=== PATIENT | female | born 1970 ===

== ENCOUNTER 2021-01-04 09:11 | Outpatient (REF) | payer MEDICAID, SELFPAY | END 2021-01-04 09:12 | disposition home or self-care (01) | LOC: HO.LAB 09:11 | PROVIDERS: Visit Provider Internal Medicine | DX: Z20.822 Contact with and (suspected) exposure to COVID-19 (principal) | CPT/HCPCS: 36415; C9803; U0003; U0005 ==

== ENCOUNTER 2021-09-22 17:00 | Emergency (ER) | payer MEDICAID, SELFPAY ==
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
[2021-09-22 17:18] VITALS: BP 160/82; PULSE 90; O2SAT 99
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
[2021-09-22 17:33] VITALS: BP 143/63; PULSE 80; RESP 17; TEMP 37.2; O2SAT 96; BMI 24.0
[2021-09-22] MEDS: Cyclobenzaprine HCl 10 MG TABLET PO (17:58)
[2021-09-22] MEDS: Acetaminophen 325 MG TABLET 650 MG PO (17:59)
== END 2021-09-22 19:08 | disposition home or self-care (01) ==
PROVIDERS: Emergency Provider Internal Medicine; PCP Family Medicine
DX: S40.012A Contusion of left shoulder, initial encounter (principal); S16.1XXA Strain of muscle, fascia and tendon at neck level, initial encounter; M54.2 Cervicalgia; M48.03 Spinal stenosis, cervicothoracic region; G44.309 Post-traumatic headache, unspecified, not intractable; V43.52XA Car driver injured in collision with other type car in traffic accident, initial encounter; Y93.9 Activity, unspecified; Y92.410 Unspecified street and highway as the place of occurrence of the external cause; Y99.9 Unspecified external cause status; Z79.899 Other long term (current) drug therapy
CPT/HCPCS: 70450; 72125; 99283; 99284

== ENCOUNTER 2022-03-26 16:05 | Outpatient (REF) | payer MEDICAID, SELFPAY ==
--- NOTE | ~2022-03-26 | MM_ITS ---
EXAMINATION: MM SCREENING DIGITAL BREAST TOMOSYNTHESIS, BILATERAL CLINICAL INFORMATION: Screening. Asymptomatic. The lifetime risk of breast cancer based on the Tyrer-Cuzick Model is 11%. COMPARISON: Mammography: 06/07/2014 TECHNIQUE: Digital breast tomosynthesis is performed in both the craniocaudal and mediolateral oblique views along with computer-aided detection (CAD). Synthesized 2D images are generated from the tomosynthesis. Additional right CC view is provided. FINDINGS: There are scattered areas of fibroglandular density (ACR BI-RADS breast composition Category b). Breast tissue composition is of lesser density when compared with 2013. Scattered benign round calcifications are decreased in number. Parenchymal pattern is otherwise similar. No architectural abnormality. There are no significant masses, abnormal calcifications, or other abnormalities. The axilla and skin contours are unremarkable. No significant changes. MM/MM tomosynthesis screening BI IMPRESSION: No mammographic evidence of malignancy. ASSESSMENT: BI-RADS 2: Benign RECOMMENDATION: Routine annual mammography screening. This patient's information was entered into a reminder system with a target due date for their next mammogram.
== END 2022-03-26 16:06 | disposition home or self-care (01) ==
LOC: HO.MAMMO 16:05
PROVIDERS: Visit Provider Family Medicine
DX: Z12.31 Encounter for screening mammogram for malignant neoplasm of breast (principal)
CPT/HCPCS: 77063; 77067

== ENCOUNTER 2022-05-07 15:11 | Emergency (ER) | payer MEDICAID, SELFPAY ==
--- NOTE | ~2022-05-07 | CT_ITS ---
EXAMINATION: CT ABDOMEN AND PELVIS WITHOUT CONTRAST CLINICAL INFORMATION: Left lower quadrant pain and left flank pain. COMPARISON: None TECHNIQUE: Multidetector volumetric imaging was performed from the superior aspect of the liver through the pubic symphysis. Sagittal and coronal reformatted images were obtained on the technologist's workstation. This CT examination was performed using dose optimization techniques as appropriate, variously including the following: *Automated exposure control *Adjustment of mA and/or kV according to patient size (this includes techniques or standardized protocols for targeted exams where dose is matched to indication/reason for exam; i.e. extremities or head) *Use of iterative reconstruction technique DLP: 479 mGy-cm FINDINGS: LUNG BASES: The lung bases are clear. The heart size is normal. LIVER, GALLBLADDER, AND BILIARY TREE: The liver is normal in size, shape, and attenuation. No focal hepatic lesion or biliary ductal dilatation is present. The gallbladder is unremarkable with no evidence of radiopaque gallstones, gallbladder wall thickening, or obvious pericholecystic inflammatory changes. PANCREAS: Unremarkable. SPLEEN: Unremarkable. ADRENAL GLANDS: Unremarkable. KIDNEYS AND URETERS: The kidneys are normal in size, shape, and attenuation. There is a 4 mm radiopaque calculi lower pole and a 7 mm calculi in the left kidney pelvis without caliectasis or hydronephrosis. There are no radiopaque calculi seen in the right kidney. BLADDER: Unremarkable. GASTROINTESTINAL TRACT: There is large amount of stool seen throughout the colon consistent with moderate to severe constipation. The small bowel loops are normal caliber. Appendix has been surgically removed. The stomach is distended with recently ingested food. ABDOMINAL WALL: A small lumbar canal hernia containing fat is noted. LYMPH NODES: Normal. VASCULAR: Unremarkable. PELVIC VISCERA: The uterus has been surgically removed. No free fluid. No abnormal pelvic lymphadenopathy or mass seen. OSSEOUS STRUCTURES: Unremarkable. CT/CT abdomen pelvis wo con IMPRESSION: Moderate to significant constipation without obstruction. Nonobstructive 4 mm radiopaque calculi lower pole and a 7 minute calculi in the pelvis left kidney. Fleischner guidelines were followed.
[2022-05-07 15:32] VITALS: BP 146/82; PULSE 86; RESP 18; TEMP 37; O2SAT 98; BMI 24.3
[2022-05-07] MEDS: 0.9 % Sodium Chloride 1,000 ML 999 ML IV ×2 (16:18→17:22)
[2022-05-07 16:19] LABS: MANUAL DIFF FLAG NO
[2022-05-07 16:21] LABS: Basophils Percent Auto 0.5 % (0-2); Eosinophils Absolute Auto 0.1 X10*3/uL (0.0-0.4); Eosinophils Percent Auto 1.1 % (0-4); Hematocrit 33.5 % (37.0-47.0); Hemoglobin 11.3 g/dl (12.0-16.0); Imm Gran Abs Auto 0.02 X10*3/uL (0.00-0.03); Imm Gran Pct Auto 0.3 % (0.0-0.4); Lymphocytes Absolute Auto 1.7 X10*3/uL (1.2-4.9); Lymphocytes Percent Auto 25.6 % (20-40); Mean Corpuscular HGB Conc 33.7 g/dl (31.0-35.0); Mean Corpuscular Hemoglobin 30.2 pg (27.0-33.0); Mean Corpuscular Volume 89.6 fL (80.0-98.0); Mean Platelet Volume 8.4 fL (9.4-12.3); Monocytes Absolute Auto 0.5 X10*3/uL (0.1-1.2); Monocytes Percent Auto 7.2 % (2-11); Neutrophils Absolute Auto 4.2 x10*3/uL (2.0-8.3); Neutrophils Percent Auto 65.3 % (45-73); Platelet Count 253 X10*3/uL (160-400); Red Blood Count 3.74 X10*6/uL (4.20-5.50); Red Cell Distribution Width 12.9 % (11.0-16.0); White Blood Count 6.5 X10*3/uL (4.8-10.8)
[2022-05-07 16:27] LABS: Prothrombin Time 11.9 SEC (9.9-13.0)
[2022-05-07 16:38] LABS: Alanine Aminotransferase 17 U/L (0-31); Albumin Level 4.6 g/dL (3.5-5.0); Alkaline Phosphatase 122 U/L (39-117); Anion Gap 12 (12-20); Aspartate Amino Transferase 19 U/L (5-31); Bilirubin Direct < 0.2 mg/dL (0.0-0.5); Bilirubin Total 0.4 mg/dL (0.0-1.0); Blood Urea Nitrogen 16 mg/dL (9-16); Calcium 9.6 mg/dL (8.4-10.2); Carbon Dioxide 31 mmol/L (22-29); Chloride 101 mmol/L (96-108); Creatinine Clr Calc Pharmacy 38.7; Estimated Glomerular Filt Rate 38; Glucose Random 99 mg/dL (60-115); Lipase 9 U/L (8-78); Magnesium 2.2 mg/dL (1.6-2.6); Potassium 4.3 mmol/L (3.3-5.1); Sodium 140 mmol/L (135-145); Total Protein 8.2 g/dL (6.5-8.0)
[2022-05-07 16:55] LABS: Appearance Urine CLOUDY; Color Urine YELLOW; Glucose Urine UA NEG (NEG); Leukocyte Esterase Urine 1+ (NEG); Nitrite Urine NEG (NEG); Specific Gravity - Urine 1.025 (1.005-1.025); UACC Culture Trigger YES; Urine Blood 3+ (NEG); Urine Ketones NEG (NEG); Urine Protein 1+ MG/DL (NEG-TRACE)
[2022-05-07 17:08] LABS: Bacteria Urine TRACE /LPF; Mucus Urine TRACE /LPF; RBC Urine 50-75 /HPF (0); Squamous Epithelial Cell Urine TRACE /LPF
--- NOTE | 2022-05-07 17:09 | ED_ITS ---
HPI - Female Genitourinary General Chief complaint: Urogenital-Female Stated complaint: blood in urine/lower back pain Time Seen by Provider: 05/07/22 15:48 Source: patient Mode of arrival: ambulatory History of Present Illness HPI Narrative: 52-year-old female with a past medical history of asthma, depression, GERD, neck pain, renal stones, urinary incontinence, presenting to the ED complaining of Coca-Cola urine, dysuria, left lower quadrant and left flank pain x a few days. Denies fever, chills, nausea, vomiting Related Data Home Medications Medication Instructions Recorded Confirmed albuterol sulfate 90 mcg/actuation 2 puff inhalation Q4-6H PRN 08/22/20 08/22/20 aerosol inhaler (Proventil HFA) Shortness Of Breath fluticasone propionate 220 1 puff inhalation BID 08/22/20 08/22/20 mcg/actuation HFA aerosol inhaler ibuprofen 200 mg tablet (Advil) 200 mg PO Q6H PRN Pain 08/22/20 08/22/20 methadone 10 mg/5 mL oral solution 10 mg PO BID 08/22/20 08/22/20 Previous Rx's Medication Instructions Recorded acetaminophen 325 mg capsule 650 mg PO Q6H PRN pain #20 caps 09/22/21 cyclobenzaprine 10 mg tablet 10 mg PO TID PRN muscle spasm #10 09/22/21 tabs cefuroxime axetil 250 mg tablet 250 mg PO BID 7 days #14 tabs 05/07/22 Allergies Allergy/AdvReac Type Severity Reaction Status Date / Time aspirin [ASPIRIN] Allergy Mild UPSET Verified 05/07/22 15:32 STOMACH, Swelling and hives Review of Systems Review of Systems: Constitutional: No Fever, No Chills, No Night Sweats, No Fatigue, No Malaise ENT/Mouth: No Ear Pain, No Nasal Congestion, No sore throat, No Rhinorrhea, No Swallowing Difficulty Eyes: No Eye Pain, No Swelling, No Redness, No Foreign Body, No Discharge, No Vision Changes Cardiovascular: No Chest Pain, No SOB, No Palpitations Respiratory: No Cough, No Sputum, No Dyspnea Gastrointestinal: No Nausea, No Vomiting, No Diarrhea, No Constipation, + Abdom inal pain Genitourinary: No irregular bleeding, + Dysuria, No Urinary Frequency, + Hematuria, No Urinary Incontinence/retention, No Urgency, + Flank Pain, No Urinary Flow Changes, No Hesitancy Musculoskeletal: No joint pain, No Myalgias, No Joint Swelling Skin: No Skin Lesions, No rash Neuro: No Weakness, No Dizziness, No Headache Yes all other systems are reviewed and are negative [facility] Past Medical History Attestation statement: The following information was validated with the patient. Medical History Asthma Depression GERD (gastroesophageal reflux disease) History of headache Neck pain Renal stones Urinary incontinence Surgical History H/O: hysterectomy Hx of appendectomy Social History Social History Advance Directives: No Advance Directives Information Provided: No Physical Exam Vital Signs: Vital Signs: Last Vital Signs Temp 97.2 F 05/07/22 18:52 Pulse 64 05/07/22 18:52 Resp 16 05/07/22 18:52 BP 157/80 H 05/07/22 18:52 Pulse Ox 97 05/07/22 18:52 O2 Del Method 05/07/22 18:52 BMI result Body Mass Index 24.3 Const: General: cooperative, healthy appearing and no acute distress Orientation/consciousness: patient oriented x3 Limitations: no limitations HEENT: Head: Yes normal to inspection and Yes atraumatic Ears: hearing grossly normal bilaterally General nose exam: Normal external nose present Face and sinus: Yes normal facial exam Eyes: General: appearance normal, both eyes and all related structures EOM: EOMs intact bilaterally Neck: Neck: Yes normal visual inspection and Yes no meningeal signs Resp: Effort & Inspection: normal respiratory effort and no respiratory distress Cardio: Rate: regular rate Heart sounds: S1 normal heart sound present and S2 normal heart sound present GI: Inspection: Yes normal to inspection Palpation (GI): Soft to palpation, Tenderness to palpation present (GI) in the LLQ, no guarding and not rigid : General: Yes CVA tenderness on the left Back/Spine/Pelvis: Back: CVA tenderness Skin: Rashes: no rashes Wounds: no wounds Neuro: General: patient oriented x3, tone normal and no meningeal signs Gait exam (Neuro): Normal gait present Extrem: General: Yes normal to inspection Course Course Course Narrative: 1713--no leukocytosis. H&H stable. BRIGETTE with a creatinine of 1.45. CPK WNL -UA infected and with blood > patient received IM Rocephin in the ED -CT showing moderate constipation with 7 mm calculus in left pelvis with mild hydro as well as 4 mm stone in the left lower pole >> will consult Urology, Dr. Twan Trent recommended treat UTI, hydrate, and outpatient follow-up if pains controlled -2124--repeat BMP after IVF with resolution of BRIGETTE, BUN of 15, creatinine of 1.34. Results discussed with patient including worrisome signs and symptoms and strict return precautions and need a close follow-up with urology MDM - Female Genitourinary MDM Narrative Medical decision making narrative: 52-year-old female with a past medical history of asthma, depression, GERD, neck pain, renal stones, urinary incontinence, presenting to the ED complaining of Coca-Cola urine, dysuria, left lower quadrant and left flank pain x a few days. On exam vital signs stable, NAD, abdomen soft with left lower quadrant and left CVA tenderness, no rebound or guarding. Concern for renal stone vs pyelo vs UTI vs renal failure vs rhabdo Plan: Labs, UA, CT abdomen/pelvis, IVF Differential Diagnosis Differential diagnosis: Likely urinary tract infection and cystitis Medical Records Attestation: I reviewed the patient's medical records. Lab Data Attestation: I reviewed the patient's lab results. Result diagrams: 05/07/22 16:14 05/07/22 18:41 Labs: Lab Results 05/07/22 05/07/22 05/07/22 Range/Units 16:13 16:13 16:14 WBC 6.5 (4.8-10.8) X10*3/uL RBC 3.74 L (4.20-5.50) X10*6/uL Hgb 11.3 L (12.0-16.0) g/dl Hct 33.5 L (37.0-47.0) % MCV 89.6 (80.0-98.0) fL MCH 30.2 (27.0-33.0) pg MCHC 33.7 (31.0-35.0) g/dl RDW 12.9 (11.0-16.0) % Plt Count 253 (160-400) X10*3/uL MPV 8.4 L (9.4-12.3) fL Immature Gran % (Auto) 0.3 (0.0-0.4) % Neut % (Auto) 65.3 (45-73) % Lymph % (Auto) 25.6 (20-40) % [place] % (Auto) 7.2 (2-11) % Eos % (Auto) 1.1 (0-4) % Baso % (Auto) 0.5 (0-2) % Lymph # (Auto) 1.7 (1.2-4.9) X10*3/uL [place] # (Auto) 0.5 (0.1-1.2) X10*3/uL Eos # (Auto) 0.1 (0.0-0.4) X10*3/uL Baso # (Auto) 0.0 (0.0-0.2) X10*3/uL Abs Immat Gran (auto) 0.02 (0.00-0.03) X10*3/uL Absolute Neuts (auto) 4.2 (2.0-8.3) x10*3/uL Absolute Nucleated RBC 0.000 (0.0-0.012) X10*3/uL Nucleated RBC % (auto) 0.0 (0.0-0.2) /100WBC PT 11.9 (9.9-13.0) SEC INR 1.0 (0.9-1.1) Sodium 140 (135-145) mmol/L Potassium 4.3 (3.3-5.1) mmol/L Chloride 101 (96-108) mmol/L Carbon Dioxide 31 H (22-29) mmol/L Anion Gap 12 (12-20) BUN 16 (9-16) mg/dL Creatinine 1.45 H (0.5-1.4) mg/dL Estim Creat Clear Calc 38.7 Estimated GFR 38 Random Glucose 99 (60-115) mg/dL Calcium 9.6 (8.4-10.2) mg/dL Magnesium 2.2 (1.6-2.6) mg/dL Total Bilirubin 0.4 (0.0-1.0) mg/dL Direct Bilirubin < 0.2 (0.0-0.5) mg/dL AST 19 (5-31) U/L ALT 17 (0-31) U/L Alkaline Phosphatase 122 H (39-117) U/L Total Creatine Kinase 80 (26-140) U/L Total Protein 8.2 H (6.5-8.0) g/dL Albumin 4.6 (3.5-5.0) g/dL Lipase 9 (8-78) U/L Urine Color Urine Appearance Urine pH (5.0-8.0) Ur Specific [place] (1.005-1.025) Urine Protein (NEG-TRACE) MG/DL Urine Glucose (UA) (NEG) MG/DL Urine Ketones (NEG) MG/DL Urine Blood (NEG) Urine Nitrite (NEG) Ur Leukocyte Esterase (NEG) Urine RBC (0) /HPF Urine WBC (0-4) /HPF Ur Squamous Epith Cells /LPF Urine Bacteria /LPF Granular Casts /LPF Urine Mucus /LPF 05/07/22 05/07/22 Range/Units 16:44 18:41 WBC (4.8-10.8) X10*3/uL RBC (4.20-5.50) X10*6/uL Hgb (12.0-16.0) g/dl Hct (37.0-47.0) % MCV (80.0-98.0) fL MCH (27.0-33.0) pg MCHC (31.0-35.0) g/dl RDW (11.0-16.0) % Plt Count (160-400) X10*3/uL MPV (9.4-12.3) fL Immature Gran % (Auto) (0.0-0.4) % Neut % (Auto) (45-73) % Lymph % (Auto) (20-40) % [place] % (Auto) (2-11) % Eos % (Auto) (0-4) % Baso % (Auto) (0-2) % Lymph # (Auto) (1.2-4.9) X10*3/uL [place] # (Auto) (0.1-1.2) X10*3/uL Eos # (Auto) (0.0-0.4) X10*3/uL Baso # (Auto) (0.0-0.2) X10*3/uL Abs Immat Gran (auto) (0.00-0.03) X10*3/uL Absolute Neuts (auto) (2.0-8.3) x10*3/uL Absolute Nucleated RBC (0.0-0.012) X10*3/uL Nucleated RBC % (auto) (0.0-0.2) /100WBC PT (9.9-13.0) SEC INR (0.9-1.1) Sodium 140 (135-145) mmol/L Potassium 4.4 (3.3-5.1) mmol/L Chloride 107 (96-108) mmol/L Carbon Dioxide 27 (22-29) mmol/L Anion Gap 10 L (12-20) BUN 15 (9-16) mg/dL Creatinine 1.34 (0.5-1.4) mg/dL Estim Creat Clear Calc 41.9 Estimated GFR 41 Random Glucose 111 (60-115) mg/dL Calcium 8.1 L D (8.4-10.2) mg/dL Magnesium (1.6-2.6) mg/dL Total Bilirubin (0.0-1.0) mg/dL Direct Bilirubin (0.0-0.5) mg/dL AST (5-31) U/L ALT (0-31) U/L Alkaline Phosphatase (39-117) U/L Total Creatine Kinase (26-140) U/L Total Protein (6.5-8.0) g/dL Albumin (3.5-5.0) g/dL Lipase (8-78) U/L Urine Color YELLOW Urine Appearance CLOUDY Urine pH 6.0 (5.0-8.0) Ur Specific [place] 1.025 (1.005-1.025) Urine Protein 1+ H (NEG-TRACE) MG/DL Urine Glucose (UA) NEG (NEG) MG/DL Urine Ketones NEG (NEG) MG/DL Urine Blood 3+ H (NEG) Urine Nitrite NEG (NEG) Ur Leukocyte Esterase 1+ H (NEG) Urine RBC 50-75 H (0) /HPF Urine WBC 10-14 H (0-4) /HPF Ur Squamous Epith Cells TRACE /LPF Urine Bacteria TRACE /LPF Granular Casts 1-4 /LPF Urine Mucus TRACE /LPF Critical Care Time Critical Care Time Critical Care Time: Yes Total Critical Care Time: 35 Attestation: I have personally provided critical care time exclusive of time spent on separately billable procedures. Time includes review of lab data, radiology results, discussion with consultants, and monitoring for potential decompensation. Intervention performed as documented. Discharge Plan Discharge Clinical Impression: Renal calculi, UTI (urinary tract infection), BRIGETTE (acute kidney injury) Patient Disposition: Home, Self-Care Instructions: Kidney Stones (ED), Urinary Tract Infection in Women (ED) Additional Instructions: Your blood work showed initial dehydration/bump in her kidney function. You do have left-sided stones in her kidney. You also have a urinary tract infection. Ceftin is an antibiotic please take as prescribed. Need to have close follow- up with Urology, call tomorrow to make an appointment. Make sure staying hydrated at home. If symptoms persist or worsen, your unable to urinate, de velops fever, abdominal pain, nausea or vomiting please return to the ED immediately Prescriptions: New cefuroxime axetil 250 mg tablet 250 mg PO BID 7 Days Qty: 14 0RF No Action methadone 10 mg/5 mL Solution 10 mg PO BID ibuprofen [Advil] 200 mg Tablet 200 mg PO Q6H PRN (Reason: Pain) Flovent 220 mcg/actuation Hfa Aerosol Inhaler 1 puff INHALATION BID albuterol sulfate [Proventil HFA] 90 mcg/actuation Hfa Aerosol Inhaler 2 puff INHALATION Q4-6H PRN (Reason: Shortness Of Breath) acetaminophen 325 mg capsule 650 mg PO Q6H PRN (Reason: pain) Qty: 20 0RF cyclobenzaprine 10 mg tablet 10 mg PO TID PRN (Reason: muscle spasm) Qty: 10 0RF Referrals: Deonte Trent MD [Physician] - 3 days
[2022-05-07] MEDS: cefTRIAXone sodium 1 GM in 0.9 % Sodium Chloride 50 ML IV (17:38)
[2022-05-07 18:52] VITALS: BP 157/80; PULSE 64; RESP 16; TEMP 36.2; O2SAT 97
[2022-05-07 19:12] LABS: Anion Gap 10 (12-20); Blood Urea Nitrogen 15 mg/dL (9-16); Calcium 8.1 mg/dL (8.4-10.2); Carbon Dioxide 27 mmol/L (22-29); Chloride 107 mmol/L (96-108); Creatinine Clr Calc Pharmacy 41.9; Estimated Glomerular Filt Rate 41; Glucose Random 111 mg/dL (60-115); Potassium 4.4 mmol/L (3.3-5.1); Sodium 140 mmol/L (135-145)
== END 2022-05-07 19:37 | disposition home or self-care (01) ==
PROVIDERS: Physician Assistant; Emergency Provider Emergency Medicine; PCP Family Medicine
DX: N20.0 Calculus of kidney (principal); N39.0 Urinary tract infection, site not specified; N17.9 Acute kidney failure, unspecified
CPT/HCPCS: 36415; 74176; 80048; 80076; 81001; 82550; 83690; 83735; 85025; 85610; 87086; 96361; 96365; 99284; J0696

== ENCOUNTER 2023-06-09 11:34 | Outpatient (REF) | payer MEDICAID, SELFPAY ==
--- NOTE | ~2023-06-09 | XR_ITS ---
EXAMINATION: XR CERVICAL SPINE CLINICAL INFORMATION: Pain COMPARISON: None available. TECHNIQUE: 6 views FINDINGS: Reversal of normal cervical lordosis. No prevertebral soft tissue swelling. Moderate degenerative disc space narrowing C4-C5. Generalized endplate spurring. No subluxation. Narrowing of the apophyseal joints throughout. Lung apices clear. XR/XR cervical spine 3V IMPRESSION: Degenerative disc disease most notable at C4-C5 as above.
== END 2023-06-09 11:35 | disposition home or self-care (01) ==
LOC: HO.HHCX 11:34
PROVIDERS: Visit Provider Family Medicine
DX: M54.2 Cervicalgia (principal)
CPT/HCPCS: 72040

== ENCOUNTER 2023-06-12 10:22 | Outpatient (REF) | payer MEDICAID, SELFPAY ==
[2023-06-12 14:42] LABS: Alanine Aminotransferase 25 U/L (0-31); Albumin Level 4.2 g/dL (3.5-5.0); Alkaline Phosphatase 123 U/L (39-117); Aspartate Amino Transferase 32 U/L (5-31); Bilirubin Direct < 0.2 mg/dL (0.0-0.5); Bilirubin Total 0.2 mg/dL (0.0-1.0); Cholesterol 300 mg/dL; HDL Cholesterol 32 mg/dL; Total Protein 8.3 g/dL (6.5-8.0); Triglycerides 592 mg/dL
== END 2023-06-12 10:23 | disposition home or self-care (01) ==
LOC: HO.HHCL 10:22
PROVIDERS: Visit Provider Family Medicine
DX: E78.5 Hyperlipidemia, unspecified (principal)
CPT/HCPCS: 36415; 80061; 80076

== ENCOUNTER 2023-12-06 10:01 | Emergency (ER) | payer MEDICAID, SELFPAY ==
--- NOTE | ~2023-12-06 | CT_ITS ---
EXAMINATION: CT ABDOMEN AND PELVIS WITHOUT CONTRAST CLINICAL INFORMATION: 53-year-old female with abdominal pain and tenderness COMPARISON: 06/06/2022 TECHNIQUE: Multidetector volumetric imaging was performed from the superior aspect of the liver through the pubic symphysis. Sagittal and coronal reformatted images were obtained on the technologist's workstation. This CT examination was performed using dose optimization techniques as appropriate, variously including the following: *Automated exposure control *Adjustment of mA and/or kV according to patient size (this includes techniques or standardized protocols for targeted exams where dose is matched to indication/reason for exam; i.e. extremities or head) *Use of iterative reconstruction technique DLP: 426 mGy-cm FINDINGS: LUNG BASES: The visualized lung bases are unremarkable. LIVER, GALLBLADDER, AND BILIARY TREE: The liver is normal in size, shape, and attenuation. No focal hepatic lesion or biliary ductal dilatation is present. The gallbladder is unremarkable with no evidence of radiopaque gallstones, gallbladder wall thickening, or obvious pericholecystic inflammatory changes. PANCREAS: Unremarkable. SPLEEN: Unremarkable. ADRENAL GLANDS: Unremarkable. KIDNEYS AND URETERS: There is small nonobstructing calculus in the lower pole of left kidney. There is irregularity of the cortex of left kidney. Seen previously stone in the left UVJ has been resolved. BLADDER: Unremarkable . Loops of small bowel are unremarkable. GASTROINTESTINAL TRACT: There is significant constipation with overdistention of colonic loops the ascending colon measured 7 x 10 cm in diameter with air-fluid level appendix is surgically absent. There is no evidence of colitis. There is redundancy of transverse colon. There is no ascites ABDOMINAL WALL: No significant hernia is appreciated. LYMPH NODES: Normal. VASCULAR: Unremarkable. PELVIC VISCERA: Uterus is surgically absent OSSEOUS STRUCTURES: Unremarkable CT/CT abdomen pelvis wo IV con IMPRESSION: 1. Severe constipation with overdistention of colonic loops. No evidence of colitis. Status post appendectomy and hysterectomy. 2. Nonobstructing calculus in the lower pole of left kidney. Fleischner guidelines were followed.
[2023-12-06 10:08] VITALS: BP 142/81; BP 148/90; PULSE 79; PULSE 80; RESP 20; TEMP 36.6; O2SAT 100; O2SAT 99; BMI 28.3
--- NOTE | 2023-12-06 10:25 | ED.GENADULT ---
HPI - General Adult General Chief complaint: Abdominal Pain Stated complaint: ABD PAIN,CONSTIPATION X2 WKS PER EMS Time Seen by Provider: 12/06/23 10:12 History of Present Illness HPI narrative: The patient is a 53-year-old woman who says that she has a history with recurrent problems constipation. She says that she takes MiraLax but still gets episodes of significant constipation from time to time. She says she has not had a bowel movement in over 2 weeks and is very uncomfortable as a result. Related Data Home Medications Medication Instructions Recorded Confirmed albuterol sulfate 90 mcg/actuation 2 puff inhalation Q4-6H PRN 08/22/20 08/22/20 aerosol inhaler (Proventil HFA) Shortness Of Breath fluticasone propionate 220 1 puff inhalation BID 08/22/20 08/22/20 mcg/actuation HFA aerosol inhaler ibuprofen 200 mg tablet (Advil) 200 mg PO Q6H PRN Pain 08/22/20 08/22/20 methadone 10 mg/5 mL oral solution 10 mg PO BID 08/22/20 08/22/20 Previous Rx's Medication Instructions Recorded acetaminophen 325 mg capsule 650 mg (2 x 325 mg) PO Q6H PRN 09/22/21 pain #20 caps cyclobenzaprine 10 mg tablet 10 mg PO TID PRN muscle spasm #10 09/22/21 tabs cefuroxime axetil 250 mg tablet 250 mg PO BID 7 days #14 tabs 05/07/22 Allergies Allergy/AdvReac Type Severity Reaction Status Date / Time aspirin [ASPIRIN] Allergy Mild UPSET Verified 12/06/23 10:12 STOMACH, Swelling and hives PMFSH Past Medical History Onset Date is defined in the Problem List Problems that require an onset date and time if occurred within 24 hrs of arrival to the ED Aortic Dissection and Rupture; Neurologic impairment; Cardiopulmonary Arrest; Endotracheal Intubation; Insertion or Replacement of Mechanical Circulatory Assist Device Medical History Asthma Depression GERD (gastroesophageal reflux disease) History of headache Neck pain Renal stones Urinary incontinence Surgical History H/O: hysterectomy Hx of appendectomy Social History Social History Advance Directives: No Advance Directives Information Provided: Yes Physical Exam ED Vital Signs: Vital Signs - 24 hr 12/06/23 10:08 12/06/23 12:00 12/06/23 13:20 Temperature 97.9 F Pulse Rate 79 64 76 Respiratory Rate 20 18 18 Blood Pressure 142/81 H 160/90 H 156/93 H Pulse Oximetry 99 99 98 Oxygen Delivery Method Room Air Room Air Room Air 12/06/23 16:00 Temperature Pulse Rate 78 Respiratory Rate 18 Blood Pressure 138/68 Pulse Oximetry 96 Oxygen Delivery Method Room Air BMI result Body Mass Index 28.3 Medications Administered Discontinued Medications Generic Name Dose Route Start Last Admin Trade Name Freq PRN Reason Stop Dose Admin Diatrizoate Meglum/Diatrizoate Sod 30 ml 12/06/23 13:47 12/06/23 13:48 Diatrizoate Meglumine, Sodium 30 Ml Solution PO 12/06/23 13:48 30 ml ONCE ONE Administration Droperidol 0.625 mg 12/06/23 12:37 12/06/23 12:52 Droperidol 5 Mg/2 Ml Vial IVPUSH 12/06/23 12:38 0.625 mg ONCE ONE Administration Sodium Chloride 1,000 mls @ 999 mls/hr 12/06/23 12:45 12/06/23 15:44 Ns IV 12/06/23 13:45 Infused .Q1H1M DAVID Infusion Sodium Chloride 1,000 mls @ 999 mls/hr 12/06/23 16:00 12/06/23 17:16 Ns IV 12/06/23 17:00 999 mls/hr .Q1H1M DAVID Administration Lactulose 200 gm 12/06/23 14:10 12/06/23 15:44 Lactulose 320 Gm/[address] 12/06/23 14:11 200 gm ONCE ONE Administration Sodium Biphosphate/Sodium Phosphate 133 ml 12/06/23 10:19 12/06/23 10:31 Sodium Phosphate,[place]-Dibasic [address] 12/06/23 10:20 133 ml ONCE ONE Administration Medical Decision Making Lab Data 12/06/23 11:25 12/06/23 11:25 Labs: Lab Results 12/06/23 12/06/23 Range/Units 11:25 11:31 WBC 9.4 (4.8-10.8) X10*3/uL RBC 4.63 D (4.20-5.50) X10*6/uL Hgb 14.0 D (12.0-16.0) g/dl Hct 41.4 D (37.0-47.0) % MCV 89.4 (80.0-98.0) fL MCH 30.2 (27.0-33.0) pg MCHC 33.8 (31.0-35.0) g/dl RDW 13.4 (11.0-16.0) % Plt Count 282 (160-400) X10*3/uL MPV 8.8 L (9.4-12.3) fL Immature Gran % (Auto) 0.4 (0.0-0.4) % Neut % (Auto) 76.1 H (45-73) % Lymph % (Auto) 18.1 L (20-40) % [place] % (Auto) 4.8 (2-11) % Eos % (Auto) 0.3 (0-4) % Baso % (Auto) 0.3 (0-2) % Lymph # (Auto) 1.7 (1.2-4.9) X10*3/uL [place] # (Auto) 0.5 (0.1-1.2) X10*3/uL Eos # (Auto) 0.0 (0.0-0.4) X10*3/uL Baso # (Auto) 0.0 (0.0-0.2) X10*3/uL Abs Immat Gran (auto) 0.04 H (0.00-0.03) X10*3/uL Absolute Neuts (auto) 7.1 (2.0-8.3) x10*3/uL Absolute Nucleated RBC 0.000 (0.0-0.012) X10*3/uL Nucleated RBC % (auto) 0.0 (0.0-0.2) /100WBC Sodium 140 (135-145) mmol/L Potassium 3.5 (3.3-5.1) mmol/L Chloride 105 (96-108) mmol/L Carbon Dioxide 22 (22-29) mmol/L Anion Gap 17 (12-20) BUN 15 (9-16) mg/dL Creatinine 1.67 H (0.5-1.4) mg/dL Estim Creat Clear Calc 38.1 Estimated GFR 32 Random Glucose 136 H (60-115) mg/dL Calcium 10.7 H D (8.4-10.2) mg/dL Magnesium 2.2 (1.6-2.6) mg/dL Total Bilirubin 0.4 (0.0-1.0) mg/dL Direct Bilirubin 0.2 (0.0-0.5) mg/dL AST 24 (5-31) U/L ALT 17 (0-31) U/L Alkaline Phosphatase 142 H (39-117) U/L C-Reactive Protein 0.30 (< or = 0.50) mg/dL Total Protein 9.8 H (6.5-8.0) g/dL Albumin 5.2 H (3.5-5.0) g/dL Lipase 13 (8-78) U/L Beta HCG, Quant 5 mIU/mL Urine Color Yellow Urine Appearance Clear Urine pH 5.5 (5.0-9.0) Ur Specific [place] 1.015 (1.005-1.025) Urine Protein Negative (Neg-Trace) mg/dL Urine Glucose (UA) Negative (Negative) mg/dL Urine Ketones Negative (Negative) mg/dL Urine Blood Trace H (Negative) Urine Nitrite Negative (Negative) Ur Leukocyte Esterase Negative (Negative) Urine RBC 3-5 H (0-2) /HPF Urine WBC 0-5 (0-5) /HPF Ur Squamous Epith Cells 0-2 (0-2) /HPF Urine Bacteria None Seen (None Seen) Hyaline Casts 0-2 (0-2) /LPF Urine Opiates Screen Not Detected (Not Detect) Urine Fentanyl Screen Not Detected (Not Detect) Ur Barbiturates Screen Not Detected (Not Detect) Ur Phencyclidine Scrn Not Detected (Not Detect) Ur Amphetamines Screen Not Detected (Not Detect) U Benzodiazepines Scrn Not Detected (Not Detect) Urine Cocaine Screen Not Detected (Not Detect) U Marijuana (THC) Screen Not Detected (Not Detect) Discharge Plan Discharge Clinical Impression: Constipation, Kidney disease Patient Disposition: Home, Self-Care Instructions: Constipation (ED), Impaired Kidney Function (ED) Additional Instructions: Please make sure that you take MiraLax (polyethylene glycol) every day. I think you will likely need this on an ongoing basis. You are on methadone and methadone is chronically constipating. It is very important that you make a prompt follow-up appointment with your regular doctor. You should get your kidney function rechecked. Take a lot of fluids every day. This will help your kidneys. Therefore please follow-up soon with your regular doctor and if you have a kidney doctor see your kidney doctor as well. It would probably also be good for you to see a distance learning coordinator to help with your chronic constipation. Return to the emergency room if significantly worse. Prescriptions: No Action methadone 10 mg/5 mL Solution 10 mg PO BID ibuprofen [Advil] 200 mg Tablet 200 mg PO Q6H PRN (Reason: Pain) Flovent 220 mcg/actuation Hfa Aerosol Inhaler 1 puff INHALATION BID albuterol sulfate [Proventil HFA] 90 mcg/actuation Hfa Aerosol Inhaler 2 puff INHALATION Q4-6H PRN (Reason: Shortness Of Breath) cefuroxime axetil 250 mg tablet 250 mg PO BID 7 Days Qty: 14 0RF acetaminophen 325 mg capsule 650 mg PO Q6H PRN (Reason: pain) Qty: 20 0RF cyclobenzaprine 10 mg tablet 10 mg PO TID PRN (Reason: muscle spasm) Qty: 10 0RF Referrals: Kym Munoz MD [Primary Care Provider] - (Constipation, kidney dysfunction)
[2023-12-06] MEDS: Sodium Phosphate,Mono-Dibasic 133 ML ENEMA PR (10:31)
--- NOTE | 2023-12-06 11:01 | PC.NURSE ---
pt rang call bibiana, t/w entered room to find pt completely naked on commode huffing in pain. when asked to help pt put hospital gown back on, pt sts she too hot. t/w took temperature, 98.1 oral. pt sts having abdominal pain, trying to have a bm post enema.
--- NOTE | 2023-12-06 11:19 | PC.NURSE ---
Fleet enema given by MD at bedside post rectal exam. Pt reporting continued abdominal pain at this time, IV being placed to obtain labs
[2023-12-06 11:31] LABS: MANUAL DIFF FLAG NO
[2023-12-06 11:32] LABS: Basophils Percent Auto 0.3 % (0-2); Eosinophils Percent Auto 0.3 % (0-4); Hematocrit 41.4 % (37.0-47.0); Imm Gran Abs Auto 0.04 X10*3/uL (0.00-0.03); Imm Gran Pct Auto 0.4 % (0.0-0.4); Lymphocytes Absolute Auto 1.7 X10*3/uL (1.2-4.9); Lymphocytes Percent Auto 18.1 % (20-40); Mean Corpuscular HGB Conc 33.8 g/dl (31.0-35.0); Mean Corpuscular Hemoglobin 30.2 pg (27.0-33.0); Mean Corpuscular Volume 89.4 fL (80.0-98.0); Mean Platelet Volume 8.8 fL (9.4-12.3); Monocytes Absolute Auto 0.5 X10*3/uL (0.1-1.2); Monocytes Percent Auto 4.8 % (2-11); Neutrophils Absolute Auto 7.1 x10*3/uL (2.0-8.3); Neutrophils Percent Auto 76.1 % (45-73); Platelet Count 282 X10*3/uL (160-400); Red Blood Count 4.63 X10*6/uL (4.20-5.50); Red Cell Distribution Width 13.4 % (11.0-16.0); White Blood Count 9.4 X10*3/uL (4.8-10.8)
[2023-12-06 11:37] LABS: Appearance Urine Clear; Color Urine Yellow; Glucose Urine UA Negative (Negative); Leukocyte Esterase Urine Negative (Negative); Nitrite Urine Negative (Negative); PH 5.5 (5.0-9.0); Specific Gravity - Urine 1.015 (1.005-1.025); UMIC TRIGGER UACC YES; Urine Blood Trace (Negative); Urine Ketones Negative (Negative); Urine Protein Negative (Neg-Trace)
[2023-12-06 11:53] LABS: Alanine Aminotransferase 17 U/L (0-31); Albumin Level 5.2 g/dL (3.5-5.0); Alkaline Phosphatase 142 U/L (39-117); Anion Gap 17 (12-20); Aspartate Amino Transferase 24 U/L (5-31); Bilirubin Direct 0.2 mg/dL (0.0-0.5); Bilirubin Total 0.4 mg/dL (0.0-1.0); Blood Urea Nitrogen 15 mg/dL (9-16); Calcium 10.7 mg/dL (8.4-10.2); Carbon Dioxide 22 mmol/L (22-29); Chloride 105 mmol/L (96-108); Creatinine Clr Calc Pharmacy 38.1; Estimated Glomerular Filt Rate 32; Glucose Random 136 mg/dL (60-115); HCG Quantitative 5 mIU/mL; Lipase 13 U/L (8-78); Magnesium 2.2 mg/dL (1.6-2.6); Potassium 3.5 mmol/L (3.3-5.1); Sodium 140 mmol/L (135-145); Total Protein 9.8 g/dL (6.5-8.0)
[2023-12-06 11:53] LABS: Bacteria Urine None Seen (None Seen); Hyaline Casts Urine 0-2 /LPF (0-2); Squamous Epithelial Cell Urine 0-2 /HPF (0-2); WBC Urine 0-5 /HPF (0-5)
[2023-12-06 12:00] VITALS: BP 160/90; PULSE 64; RESP 18; O2SAT 99
[2023-12-06] MEDS: 0.9 % Sodium Chloride 1,000 ML 999 ML IV ×2 (12:51→17:16)
[2023-12-06] MEDS: droPERidol 5 MG/2 ML VIAL 0.625 MG IVPUSH (12:52)
--- NOTE | 2023-12-06 13:16 | PC.NURSE ---
pt found on floor next to stretcher. pt sts she got a jaleel horse in her right calf as she was getting up to use the commode and lowered herself to the ground. pt found with liquid stool on ground as well as contrast that had spilled when pt lowered herself. pt cleaned up and placed back on stretcher. full bed change given. INES Riley aware of situation.
[2023-12-06 13:20] VITALS: BP 156/93; PULSE 76; RESP 18; O2SAT 98
--- NOTE | 2023-12-06 13:42 | PC.NURSE ---
At approx 1315 an RN found pt to be sitting on floor with CT oral contrast around her, pt told that RN that she had a cramp and lowered herself to the floor. Pt seems to be restless, stating she is hot and cold MD aware, vitals obtained and are stable. Pt currently at CT at this time
[2023-12-06] MEDS: Diatrizoate Meglumine, Sodium 30 ML SOLUTION PO (13:48)
[2023-12-06 14:03] LABS: Amphetamine Screen Urine Not Detected (Not Detect); Barbiturates, Urine Not Detected (Not Detect); Benzodiazepines Screen Urine Not Detected (Not Detect); Cannabinoid Screen Urine Not Detected (Not Detect); Cocaine Screen Urine Not Detected (Not Detect); Fentanyl, urine Not Detected (Not Detect); Opiate Screen Urine Not Detected (Not Detect); Phencyclidine Screen Urine Not Detected (Not Detect)
[2023-12-06] MEDS: Lactulose 320 GM/480 ML SOLUTION 200 GM PR (15:44)
[2023-12-06 16:00] VITALS: BP 138/68; PULSE 78; RESP 18; O2SAT 96
--- NOTE | 2023-12-06 16:34 | PC.NURSE ---
Pt had multiple bm noted con/incon, hygiene care provided
== END 2023-12-06 17:50 | disposition home or self-care (01) ==
PROVIDERS: Emergency Provider Emergency Medicine; PCP Family Medicine
DX: K59.00 Constipation, unspecified (principal); N28.9 Disorder of kidney and ureter, unspecified; Z79.899 Other long term (current) drug therapy
CPT/HCPCS: 36415; 74176; 80048; 80076; 80307; 81001; 83690; 83735; 84702; 85025; 86140; 96361; 96374; 99284; J1790

== ENCOUNTER 2024-08-03 12:09 | Outpatient (REF) | payer MEDICAID, SELFPAY | END 2024-08-03 12:10 | disposition home or self-care (01) | LOC: HO.HHCL 12:09 | PROVIDERS: Visit Provider Nurse Practitioner | DX: R82.90 Unspecified abnormal findings in urine (principal) | CPT/HCPCS: 36415 ==

== ENCOUNTER 2024-08-09 11:47 | Outpatient (REF) | payer MEDICAID, SELFPAY | END 2024-08-09 11:48 | disposition home or self-care (01) | LOC: HO.HHCL 11:47 | PROVIDERS: Visit Provider Nurse Practitioner | DX: R82.90 Unspecified abnormal findings in urine (principal) | CPT/HCPCS: 82693 ==

== ENCOUNTER 2024-11-01 13:28 | Outpatient (REF) | payer MEDICAID, SELFPAY ==
--- NOTE | ~2024-11-01 | MM_ITS ---
EXAMINATION: MM SCREENING DIGITAL BREAST TOMOSYNTHESIS, BILATERAL CLINICAL INFORMATION: Screening. Asymptomatic. COMPARISON: Mammography: Comparison is made with available priors TECHNIQUE: Digital breast mammography with tomosynthesis is performed in both the craniocaudal and mediolateral oblique views along with computer-aided detection (CAD). FINDINGS: There are scattered areas of fibroglandular density (ACR BI-RADS breast composition Category b). There are no significant masses, abnormal calcifications, or other abnormalities. MM/MM tomosynthesis screening BI IMPRESSION: No mammographic evidence of malignancy. ASSESSMENT: BI-RADS BI-RADS 1 - Negative RECOMMENDATION: Routine annual mammography screening. 1 year F/U This examination should not preclude the clinical evaluation of a suspicious palpable abnormality. This patient's information was entered into a reminder system with a target due date for their next mammogram. Electronically signed by: Jeanne Duque DO 11/05/2024 05:24 PM EVER
== END 2024-11-01 13:29 | disposition home or self-care (01) ==
LOC: HO.MAMMO 13:28
PROVIDERS: PCP Family Medicine; Visit Provider Family Medicine
DX: Z12.31 Encounter for screening mammogram for malignant neoplasm of breast (principal)
CPT/HCPCS: 77063; 77067

== ENCOUNTER → 2024-11-01 13:30 | Outpatient (BNV) | payer MEDICAID, SELFPAY | PROVIDERS: PCP Family Medicine; Visit Provider Internal Medicine | DX: Z12.31 Encounter for screening mammogram for malignant neoplasm of breast (principal) | CPT/HCPCS: 77063; 77067 ==

== ENCOUNTER 2025-04-21 10:38 | Outpatient (REF) | payer MEDICAID, SELFPAY ==
--- OUTSIDE RECORDS SUMMARY | 2025-04-21 11:08 | XMS_ITS | Encounter Summary ---
Author Organization [employer] Address [address] [place] [address] Care Team Providers Care Glost Placer Name Role Phone Kym Munoz MD Primary Care Provider [phone]- [phone] Encounter Details Date Type Department Care Team (Late st Contact Info) Description 12/10/2022 Abstract [facility] [address] [place], [place] [phone] Kym Mnuoz MD [address] [place], [place] [phone] Social History Tobacco Use Types Packs/Day Years Used Date Smoking Tobacco: Never Assessed Comments Unknown Sex and Gender Information Value Date Recorded Sex Assigned at Female 09/23/2022 10:15 AM EDT Legal Sex Female 10:15 AM EDT Gender Identity Female 09/23/2022 10:15 AM EDT Sexual Orientation Choose not to disclose 2021 10:15 AM EDT documented as of this encounter Plan of Treatment Not on file documented as of this encounter Procedures Procedure Name Priority Date/Time Associated Diagnosis Comments MAMMOGRAPHY Routine 03/26/2022 PAP SMEAR Routine 01/01/2013 12:00 AM EST documented in this encounter Results * Mammography (03/26/2022) Mammogram BIRADS 2 Anatomical Region Laterality Modality Other Historical Provider HEALTH MAINTENANCE Final Result * Pap Smear (01/01/2013 12:00 AM EST) Swab Kym Munoz MD LAB CYTOLOGY ORDERABLES Fi nal Result [facility] [address] [place] [address] [phone] documented in this encounter Visit Diagnoses Not on filedocumented in this encounter Care Teams Glost Placer Relationship Specialty Start Date End Date Kym Munoz MD [address] [facility] [place] [id number] PCP - General Family Medicine 11/24/18 documented as of this encounter
[2025-04-21 11:51] LABS: MANUAL DIFF FLAG NO
[2025-04-21 11:54] LABS: Basophils Absolute Auto 0.1 X10*3/uL (0.0-0.2); Basophils Percent Auto 0.8 % (0-2); Eosinophils Absolute Auto 0.1 X10*3/uL (0.0-0.4); Eosinophils Percent Auto 1.8 % (0-4); Hematocrit 35.6 % (37.0-47.0); Hemoglobin 11.9 g/dl (12.0-16.0); Imm Gran Abs Auto 0.04 X10*3/uL (0.00-0.03); Imm Gran Pct Auto 0.7 % (0.0-0.4); Lymphocytes Absolute Auto 1.7 X10*3/uL (1.2-4.9); Lymphocytes Percent Auto 27.9 % (20-40); Mean Corpuscular HGB Conc 33.4 g/dl (31.0-35.0); Mean Corpuscular Hemoglobin 30.8 pg (27.0-33.0); Mean Corpuscular Volume 92.2 fL (80.0-98.0); Mean Platelet Volume 8.9 fL (9.4-12.3); Monocytes Absolute Auto 0.5 X10*3/uL (0.1-1.2); Neutrophils Absolute Auto 3.7 x10*3/uL (2.0-8.3); Neutrophils Percent Auto 60.8 % (45-73); Platelet Count 227 X10*3/uL (160-400); Red Blood Count 3.86 X10*6/uL (4.20-5.50); Red Cell Distribution Width 14.3 % (11.0-16.0); White Blood Count 6.1 X10*3/uL (4.8-10.8)
[2025-04-21 12:04] LABS: Estimated Average Glucose 111 mg/dL; Hemoglobin A1C 116.4271 umol/L; Hemoglobin A1c % 5.5 % (<6.0); Total Hemoglobin (HGBA1C) 3179.7738 umol/L
[2025-04-21 12:38] LABS: Alanine Aminotransferase 32 U/L (0-31); Albumin Level 4.4 g/dL (3.5-5.0); Alkaline Phosphatase 112 U/L (39-117); Anion Gap 12 (12-20); Aspartate Amino Transferase 30 U/L (5-31); Bilirubin Direct 0.1 mg/dL (0.0-0.5); Bilirubin Total 0.3 mg/dL (0.0-1.0); Blood Urea Nitrogen 11 mg/dL (9-16); Calcium 9.6 mg/dL (8.4-10.2); Carbon Dioxide 28 mmol/L (22-29); Chloride 106 mmol/L (96-108); Cholesterol 259 mg/dL (<200); Estimated Glomerular Filt Rate 52; Glucose Random 96 mg/dL (60-115); HDL Cholesterol 30 mg/dL (>40); LDL Cholesterol Calculated 167 mg/dL (<100); Potassium 4.1 mmol/L (3.3-5.1); Sodium 142 mmol/L (135-145); Total Protein 7.9 g/dL (6.5-8.0); Triglycerides 310 mg/dL (<150)
[2025-04-21 12:55] LABS: TSH reflex Free T4 1.59 uIU/mL (0.32-4.0); Vitamin D 25-OH Total 19.6 ng/mL (>30)
== END 2025-04-21 10:39 | disposition home or self-care (01) ==
LOC: HO.HHCL 10:38
PROVIDERS: Visit Provider Family Medicine
DX: I10 Essential (primary) hypertension (principal); E78.5 Hyperlipidemia, unspecified; E55.9 Vitamin D deficiency, unspecified; R73.03 Prediabetes
CPT/HCPCS: 36415; 80048; 80061; 80076; 82306; 83036; 84443; 85025

== ENCOUNTER 2025-06-24 10:21 | Outpatient (AMB) | payer MEDICAID, SELFPAY ==
--- NOTE | 2025-06-24 07:39 | A.OFFVIS_ITS ---
Intake Visit Reasons: LDCT Allergies aspirin (ASPIRIN) Allergy (Mild, Verified 12/06/23 10:12) UPSET STOMACH, Swelling and hives HPI HPI LDCT: Details: Initial visit for this 55yo smoker with a 30PYH. Patient started smoking at age 15 for 40 years at 1/2-1ppd. Max 1-2ppd now 1/2ppd. . Denies marijuana use. Denies second hand smoke exposure. Denies exposure to chemicals or substances like asbestos. . Denies known family history of lung cancer. Denies personal history of cancers. Denies chest CT in last year. . Denies recent travel outside the [place]. Denies recent respiratory illness or recent hospitalization for respiratory issues. Denies testing positive for COVID. Denies receiving COVID Vaccine. . Denies fever, chills, new/worsening cough, hemoptysis, hoarseness or dysphagia. Denies significant chest pain, significant dyspnea or unintentional weight loss. Patient Lung Cancer Screening Questionnaire reviewed with patient by provider. . Shared Decision Making Completed. Patient meets criteria. Discussed in detail with patient, the risk vs benefit of LDCT screening. Patient consents to proceed with scan. Discussed smoking cessation. [facility] Medical History (Updated 06/24/25 @ 10:39 by Svitlana Davis PA-C) Nicotine dependence, cigarettes, uncomplicated Neck pain GERD (gastroesophageal reflux disease) Urinary incontinence Renal stones Depression History of headache Asthma Surgical History (Updated 05/03/25 @ 16:01 by Svitlana Davis PA-C) History of endometrial ablation History of hysterectomy History of appendectomy Social History (Updated 06/24/25 @ 10:39 by Svitlana Davis PA-C) Alcohol intake: current Alcohol intake frequency: does not drink Patient Tobacco Use Status: Current everyday Tobacco user Cigarettes Per Day: 10 Years Smoked: (onset 15yo, 1/2-1ppd x 40yrs, now 1/2ppd, 30pyh) Assessment & Plan Assessment & Plan (1) Nicotine dependence, cigarettes, uncomplicated: Comment: (onset 15yo, 1/2-1ppd x 40yrs, 30pyh) Code(s): F17.210 - Nicotine dependence, cigarettes, uncomplicated Category: Medical Plan: - SDM visit completed today in office. - Patient meets criteria for LDCT for lung cancer screening purposes and is asymptomatic. - Smoking cessation counseling offered. Patients can always call [phone]. - Will arrange for a LDCT scan of the chest for screening purposes at [facility]. - Risks, benefits, and alternatives were discussed in detail and the patient agrees to proceed. - Risks discussed include but are not limited to: radiation exposure, anxiety during testing and while awaiting results, false negatives, false positives and possibility of additional intervention such as further imaging or surgical procedures for benign disease. - Benefits are obviously detection of lung cancer at an early stage which can lead to improved outcomes. - Discussed the importance of screening program compliance with adherence to yearly LDCT scan as scheduled - or sooner interval scans for personalized screening regimen. - Discussed follow up plan. Our office will send a letter discussing results and if needed set up phone call and office visit based on CT findings. - Patient educated on results categorization and the management decisions for suspicious findings potentially found on the screening LDCT scan. Any patient with a Lung RADS score of 3 or 4 will be reviewed by a multidisciplinary team at [facility] to form a plan of action in regards to scan findings. - If further work up is warranted for a suspicious lung finding this will be followed by the Lung Cancer Screening program in conjunction with the Thoracic Surgery Department at [facility]. - A copy of the office note and LDCT will be sent to the patient's PCP - as well as documentation on any associated further plans of care. - Incidental findings on LDCT are the PCP's responsibility. These findings are indicated with an S finding on the LDCT Assessment. A note discussing the findings will be sent to the PCP who is then responsible for further management. - All questions answered.? Coding Level of Care Code Lung Cancer Screening G0296 Diagnoses Nicotine dependence, cigarettes, uncomplicated F17.210
--- OUTSIDE RECORDS SUMMARY | 2025-06-24 10:32 | XMS_ITS | Encounter Summary ---
Author Organization [employer] [facility] Address [address] [place] [address] Care Team Providers Care Manager Mechanical Maintenance Name Role Phone Kym Munoz MD Primary Care Provider [phone]- [phone] Encounter Details Date Type Department Care Team (Late st Contact Info) Description 12/10/2022 Abstract [facility] [address] [place], [place] [phone] Kym Munoz MD [address] [place], [place] [phone] Social History Tobacco Use Types Packs/Day Years Used Date Smoking Tobacco: Never Assessed Comments Unknown Sex and Gender Information Value Date Recorded Sex Assigned at Female 09/23/2022 10:15 AM EDT Legal Sex Female 10:15 AM EDT Gender Identity Female 09/23/2022 10:15 AM EDT Sexual Orientation Choose not to disclose 2021 10:15 AM EDT documented as of this encounter Plan of Treatment Upcoming Encounters Date Type Department Care Team (Late st Contact Info) Description 07/29/2025 1:45 PM EDT Office Visit [facility] [address] [place], [place] [phone] Charlene Villanueva, OD [address] [place], [place] [phone] documented as of this encounter Procedures Procedure Name Priority Date/Time Associated Diagnosis Comments MAMMOGRAPHY Routine 03/26/2022 PAP SMEAR Routine 01/01/2013 12:00 AM EST documented in this encounter Results * Mammography (03/26/2022) Mammogram BIRADS 2 Anatomical Region Laterality Modality Other Historical Provider HEALTH MAINTENANCE Final Result * Pap Smear (01/01/2013 12:00 AM EST) Swab us Kym Munoz MD LAB CYTOLOGY ORDERABLES Fi nal Result Performing Organization Address City/State/[facility] Co de Phone Number [facility] [address] [place] [address] [phone] documented in this encounter Visit Diagnoses Not on filedocumented in this encounter Care Teams Manager Mechanical Maintenance Relationship Specialty Start Date End Date Kym Munoz MD [address] [place] [phone] PCP - General Family Medicine 11/24/18 documented as of this encounter
== END 2025-06-24 11:05 | disposition home or self-care (01) ==
LOC: HO.HPS 10:22
PROVIDERS: PCP Family Medicine; Referring Provider Family Medicine; Visit Provider Physician Assistant Medical
DX: F17.210 Nicotine dependence, cigarettes, uncomplicated (principal)
CPT/HCPCS: G0296

== ENCOUNTER 2025-06-24 10:44 | Outpatient (REF) | payer MEDICAID, SELFPAY ==
--- NOTE | ~2025-06-24 | CT_ITS ---
EXAMINATION: CT LOW-DOSE SCREENING CHEST WITHOUT CONTRAST CLINICAL INFORMATION: 55-year-old female, current smoker, 42 pack years, lung cancer screening. COMPARISON: None available. TECHNIQUE: Multidetector volumetric CT imaging of the chest is performed on a Siemens SOMATOM Definition scanner without contrast using low dose technique. Additional 2D coronal and sagittal reformatted images and axial 3D maximum intensity projection (MIP) images are generated on the CT workstation. This CT examination was performed using dose optimization techniques as appropriate, variously including the following: *Automated exposure control *Adjustment of mA and/or kV according to patient size (this includes techniques or standardized protocols for targeted exams where dose is matched to indication/reason for exam; i.e. extremities or head) *Use of iterative reconstruction technique FINDINGS: PULMONARY NODULES: There are no pulmonary nodules. LUNGS: Lungs are symmetrically expanded and clear bilaterally. No consolidations. No abnormal groundglass opacities. No interstitial changes. Small airways demonstrate minimal thickening. No effusion or pneumothorax. MEDIASTINUM: Normal thyroid. Aorta is normal in caliber. Main pulmonary artery is normal in caliber. Heart size is normal. No pericardial effusion. Small type I hiatus hernia suspected. No adenopathy or mass. CORONARY ARTERY CALCIFICATION: Minimal. CHEST WALL/AXILLA: Unremarkable. UPPER ABDOMEN: Imaged upper abdominal contents are unremarkable in appearance. The left kidney appears smaller than the right. OSSEOUS STRUCTURES: No suspicious lytic or blastic bone lesions. CT/CT lung screening IMPRESSION: 1. There are no suspicious pulmonary nodules present. 2. There is no active lung disease. ASSESSMENT: 1. Lung-RADS Category 1: Negative. There are no nodules or there are definitely benign nodules. 2. Lung-RADS Category S: None. RECOMMENDATION: Continued routine annual low-dose CT lung screening in 1 year is recommended. An order for CT CHEST LOW DOSE CANCER SCREENING ([id number]) can be placed. Electronically signed by: Everton Monroe MD 06/24/2025 11:32 AM EDT
== END 2025-06-24 10:45 | disposition home or self-care (01) ==
LOC: HO.CT 10:44
PROVIDERS: PCP Family Medicine; Visit Provider Physician Assistant Medical
DX: Z12.2 Encounter for screening for malignant neoplasm of respiratory organs (principal); F17.210 Nicotine dependence, cigarettes, uncomplicated
CPT/HCPCS: 71271; G0296

== ENCOUNTER → 2025-06-24 10:46 | Outpatient (BNV) | payer MEDICAID, SELFPAY | PROVIDERS: PCP Family Medicine; Visit Provider Radiology Diagnostic Radiology | DX: F17.210 Nicotine dependence, cigarettes, uncomplicated (principal) | CPT/HCPCS: 71271 ==

== ENCOUNTER 2025-06-28 13:03 | Emergency (ER) | payer MEDICAID, SELFPAY ==
--- NOTE | ~2025-06-28 | XR_ITS ---
EXAMINATION: XR ABDOMEN KUB CLINICAL INDICATION: constipation x3 weeks COMPARISON: CT December 06, 2023 TECHNIQUE: AP view of the abdomen. FINDINGS: There is a large amount of stool in the right colon and rectosigmoid. Small amount of stool and gas is seen in the transverse colon and left colon. Surgical clip projects over the right mid abdomen. XR/XR KUB IMPRESSION: There is a large amount stool in the right colon and rectosigmoid colon Electronically signed by: Nicholas Issa MD 06/28/2025 01:30 PM EDT
[2025-06-28 13:04] VITALS: BP 155/80; PULSE 88; RESP 16; TEMP 36.6; O2SAT 98; BMI 27.5
--- NOTE | 2025-06-28 13:06 | ED.ABDPAIN ---
HPI - Abdominal Pain General Chief Complaint: Abdominal Pain Stated Complaint: constipation Time Seen by Provider: 06/28/25 16:34 Source: patient Mode of arrival: ambulatory Limitations: no limitations History of Present Illness ED Provider: Mia Khanna PA-C HPI narrative: 55 yo female with history of constipation presenting to the ER for evaluation of constipation with last BM 3 weeks ago. she states she has had this problem since she was a child. has been intermittently taking senna, fiber, miralax intermittently. no vomiting. occasionally passing flatus, last was this morning. she reports generalized cramping abdominal pains that come and go. she reports decreased PO intake the last few days because she feels full and is afraid to eat due to her constipation. MD elicited complaint: abdominal pain and other (constipation) Pertinent past history: constipation Onset (ago): week(s) Pain Consistency: intermittent Location: diffuse Severity: moderate Quality: cramping Radiation: none Migration to: no migration Exacerbating factors: nothing Relieving factors: nothing Associated symptoms: denies other symptoms Related Data Home Medications ?Medication ?Instructions ?Recorded ?Confirmed albuterol sulfate 90 mcg/actuation 2 puff inhalation Q4-6H PRN 08/22/20 08/22/20 aerosol inhaler (Proventil HFA) Shortness Of Breath fluticasone propionate 220 1 puff inhalation BID 08/22/20 08/22/20 mcg/actuation HFA aerosol inhaler ibuprofen 200 mg tablet (Advil) 200 mg PO Q6H PRN Pain 08/22/20 08/22/20 methadone 10 mg/5 mL oral solution 10 mg PO BID 08/22/20 08/22/20 Previous Rx's ?Medication ?Instructions ?Recorded acetaminophen 325 mg capsule 650 mg (2 x 325 mg) PO Q6H PRN 09/22/21 pain #20 caps cyclobenzaprine 10 mg tablet 10 mg PO TID PRN muscle spasm #10 09/22/21 tabs cefuroxime axetil 250 mg tablet 250 mg PO BID 7 days #14 tabs 05/07/22 bisacodyl 10 mg/30 mL enema (Fleet 10 mg (30 mL) WI DAILY PRN 06/28/25 Bisacodyl) constipation #37 mL docusate sodium 100 mg capsule 100 mg PO BID #20 caps 06/28/25 (Colace) lactulose 10 gram/15 mL oral 20 g (30 mL) PO BID PRN 06/28/25 solution constipation #237 mL polyethylene glycol 3350 17 17 g PO BID #238 grams 06/28/25 gram/dose oral powder (Miralax) Allergies Allergy/AdvReac Type Severity Reaction Status Date / Time aspirin (ASPIRIN) Allergy Mild UPSET Verified 06/28/25 13:07 STOMACH, Swelling and hives Review of Systems Review of Systems Yes all other systems are reviewed and are negative [facility] Past Medical History Medical History (Updated 06/28/25 @ 16:58 by ALIS Vidal) Nicotine dependence, cigarettes, uncomplicated Neck pain GERD (gastroesophageal reflux disease) Urinary incontinence Renal stones Depression History of headache Asthma Surgical History (Updated 05/03/25 @ 16:01 by Svitlana Davis PA-C) History of endometrial ablation History of hysterectomy History of appendectomy Social History Social History (Updated 06/24/25 @ 10:39 by Svitlana Davis PA-C) Alcohol intake: current Alcohol intake frequency: does not drink Patient Tobacco Use Status: Current everyday Tobacco user Cigarettes Per Day: 10 Years Smoked: (onset 15yo, 1/2-1ppd x 40yrs, now 1/2ppd, 30pyh) Advance Directives: No Advance Directives Information Provided: No Do you have a plan to hurt others: No Plan Physical Exam ED Vital Signs: Vital Signs - 24 hr 06/28/25 13:04 Temperature 97.9 F Pulse Rate 88 Respiratory Rate 16 Blood Pressure 155/80 H Pulse Oximetry 98 Oxygen Delivery Method Room Air BMI result Body Mass Index 27.5 Appearance: Alert. Oriented X3. No acute distress. Head: normocephalic, atraumatic. Eyes: normal inspection ENT: Pharynx normal. moist mucus membranes Neck: Normal inspection. Neck supple. CVS: Normal heart rate and rhythm. Pulses normal. Respiratory: No respiratory distress. Breath sounds normal. Abdomen: Soft with left sided fullness on palpation, nontender, normal active bowel sounds. Skin: Skin warm and dry. Normal skin color. Normal skin turgor. No rashes. Extremities: No lower extremity edema. No joint swelling. Neuro/psych: Oriented X 3. nonfocal. Normal speech and cognition. Medical Decision Making Medical Decision Making MDM Narrative: 55-year-old female with history of constipation presents to the ER for evaluation of 3 weeks of constipation along with intermittent abdominal cramping pains. On examination her abdomen is soft with normoactive bowel sounds. Low suspicion for obstruction. She does not have an acute abdomen. She appears well. Labs do not show any major metabolic derangement. She has some very mild transaminitis, history of similar in the past. Urinalysis not consistent with infection. She has some microscopic hematuria which appears to be chronic. Her KUB shows large stool burden without any evidence of obstruction. Clinically she is not obstructed. She has not tried any dedicated bowel regimen regularly, only intermittently and not consistently. Will plan to start her on MiraLax 2 times per day, senna nightly, Colace 2 times per day, p.r.n. enemas and p.r.n. lactulose. She has never had a colonoscopy and the importance of GI follow-up was discussed with the patient. She is stable for discharge home with bowel regimen, GI follow-up. Return precautions were discussed. Patient agrees with plan Differential Diagnosis Differential Diagnoses: The differential diagnosis associated with the presentation includes constipation, obstipation, colonic mass, electrolyte abnormality, dehydration, low suspicion for SBO or pseudo-obstruction Admission/Observation Consideration of admission/observation: Escalation of care including admission/observation considered Lab Data MDM Lab Attestation statement: I reviewed the patient's lab results. Mild anemia, mildly elevated BUN, no electrolyte abnormalities, chronic microscopic hematuria 06/28/25 13:17 06/28/25 13:17 Labs: Lab Results 06/28/25 06/28/25 Range/Units 13:17 15:20 WBC 7.1 (4.8-10.8) X10*3/uL RBC 4.09 L (4.20-5.50) X10*6/uL Hgb 12.8 (12.0-16.0) g/dl Hct 36.9 L (37.0-47.0) % MCV 90.2 (80.0-98.0) fL MCH 31.3 (27.0-33.0) pg MCHC 34.7 (31.0-35.0) g/dl RDW 13.7 (11.0-16.0) % Plt Count 257 (160-400) X10*3/uL MPV 9.1 L (9.4-12.3) fL Immature Gran % (Auto) 0.3 (0.0-0.4) % Neut % (Auto) 65.8 (45-73) % Lymph % (Auto) 26.9 (20-40) % [place] % (Auto) 5.9 (2-11) % Eos % (Auto) 0.7 (0-4) % Baso % (Auto) 0.4 (0-2) % Lymph # (Auto) 1.9 (1.2-4.9) X10*3/uL [place] # (Auto) 0.4 (0.1-1.2) X10*3/uL Eos # (Auto) 0.1 (0.0-0.4) X10*3/uL Baso # (Auto) 0.0 (0.0-0.2) X10*3/uL Abs Immat Gran (auto) 0.02 (0.00-0.03) X10*3/uL Absolute Neuts (auto) 4.7 (2.0-8.3) x10*3/uL Absolute Nucleated RBC 0.000 (0.0-0.012) X10*3/uL Nucleated RBC % (auto) 0.0 (0.0-0.2) /100WBC Sodium 141 (135-145) mmol/L Potassium 4.1 (3.3-5.1) mmol/L Chloride 103 (96-108) mmol/L Carbon Dioxide 27 (22-29) mmol/L Anion Gap 15 (12-20) BUN 18 H (9-16) mg/dL Creatinine 1.35 (0.5-1.4) mg/dL Estim Creat Clear Calc 40.5 Estimated GFR 41 Random Glucose 131 H (60-115) mg/dL Calcium 9.6 (8.4-10.2) mg/dL Magnesium 2.1 (1.6-2.6) mg/dL Total Bilirubin 0.4 (0.0-1.0) mg/dL Direct Bilirubin 0.2 (0.0-0.5) mg/dL AST 34 H (5-31) U/L ALT 32 H (0-31) U/L Alkaline Phosphatase 115 (39-117) U/L Total Protein 8.7 H (6.5-8.0) g/dL Albumin 5.0 (3.5-5.0) g/dL Urine Color Dark Yellow Urine Appearance Clear Urine pH 6.0 (5.0-9.0) Ur Specific [place] 1.025 (1.005-1.025) Urine Protein 30 (1+) H (Neg-Trace) mg/dL Urine Glucose (UA) Negative (Negative) mg/dL Urine Ketones Trace (Negative) mg/dL Urine Blood Small (1+) H (Negative) Urine Nitrite Negative (Negative) Ur Leukocyte Esterase Trace H (Negative) Urine RBC >20 H (0-2) /HPF Urine WBC 0-5 (0-5) /HPF Ur Squamous Epith Cells 0-2 (0-2) /HPF Urine Bacteria None Seen (None Seen) Hyaline Casts 0-2 (0-2) /LPF Independent Interpretation I performed an independent interpretation of an: Plain X-Ray Interpretation: Large stool burden without any air-fluid levels to suggest obstruction Radiology Impression Discussion of test interpretation with radiology: I have reviewed the radiologist's reading. External Record Review External record reviewed: Outpatient record and Prior outpatient labs Tests considered The following testing was considered but not selected: CT scan of the abdomen was considered however not emergently indicated today based on her physical exam findings and chronicity of her symptoms Prescription Management I considered prescription management with: Other (Laxative) Chronic Conditions Patient?s care impacted by: Other (Constipation) Critical Care Time Critical Care Time Critical Care Time: No Discharge Plan Discharge Clinical Impression: Constipation Patient Disposition: Home, Self-Care Instructions: Constipation (DC), Fleet Enema (ED) Additional Instructions: your xray showed a large stool burden in your colon your labs were unremarkable start miralax two times per day continue senna each night take colace 100 mg two times per day take lactulose 20 gram 2 times per day as needed for constipation use the enema today follow up with your doctor and GI - call for an appointment If you develop new or worsening symptoms call 911 or come back to the ER for further evaluation. Prescriptions: New polyethylene glycol 3350 [Miralax] 17 gram/dose powder 17 g PO BID Qty: 238 0RF Fleet Bisacodyl 10 mg/30 mL enema 10 mg WI DAILY PRN (Reason: constipation) Qty: 37 0RF docusate sodium [Colace] 100 mg capsule 100 mg PO BID Qty: 20 0RF lactulose 10 gram/15 mL solution 20 g PO BID PRN (Reason: constipation) Qty: 237 0RF No Action methadone 10 mg/5 mL Solution 10 mg PO BID ibuprofen [Advil] 200 mg Tablet 200 mg PO Q6H PRN (Reason: Pain) Flovent 220 mcg/actuation Hfa Aerosol Inhaler 1 puff INHALATION BID albuterol sulfate [Proventil HFA] 90 mcg/actuation Hfa Aerosol Inhaler 2 puff INHALATION Q4-6H PRN (Reason: Shortness Of Breath) cefuroxime axetil 250 mg tablet 250 mg PO BID 7 Days Qty: 14 0RF acetaminophen 325 mg capsule 650 mg PO Q6H PRN (Reason: pain) Qty: 20 0RF cyclobenzaprine 10 mg tablet 10 mg PO TID PRN (Reason: muscle spasm) Qty: 10 0RF Ref[place]: [facility] [Provider Group, Gastroenterology] Kym Munoz MD [Primary Care Provider, Family Practice] Discharge Date/Time: 06/28/25 16:44 Print Language: Indonesian
[2025-06-28 13:24] LABS: MANUAL DIFF FLAG NO
[2025-06-28 13:40] LABS: Hematocrit 36.9 % (37.0-47.0); Hemoglobin 12.8 g/dl (12.0-16.0); Imm Gran Abs Auto 0.02 X10*3/uL (0.00-0.03); Imm Gran Pct Auto 0.3 % (0.0-0.4); Lymphocytes Absolute Auto 1.9 X10*3/uL (1.2-4.9); Mean Corpuscular HGB Conc 34.7 g/dl (31.0-35.0); Mean Corpuscular Hemoglobin 31.3 pg (27.0-33.0); Mean Corpuscular Volume 90.2 fL (80.0-98.0); NRBC Abs Auto 0.000 X10*3/uL (0.0-0.012); NRBC Pct Auto 0.0 /100WBC (0.0-0.2); Platelet Count 257 X10*3/uL (160-400); Red Blood Count 4.09 X10*6/uL (4.20-5.50); White Blood Count 7.1 X10*3/uL (4.8-10.8)
[2025-06-28 13:55] LABS: Alanine Aminotransferase 32 U/L (0-31); Albumin Level 5.0 g/dL (3.5-5.0); Alkaline Phosphatase 115 U/L (39-117); Anion Gap 15 (12-20); Aspartate Amino Transferase 34 U/L (5-31); Blood Urea Nitrogen 18 mg/dL (9-16); Calcium 9.6 mg/dL (8.4-10.2); Carbon Dioxide 27 mmol/L (22-29); Chloride 103 mmol/L (96-108); Creatinine Clr Calc Pharmacy 40.5; Estimated Glomerular Filt Rate 41; Magnesium 2.1 mg/dL (1.6-2.6); Potassium 4.1 mmol/L (3.3-5.1); Sodium 141 mmol/L (135-145); Total Protein 8.7 g/dL (6.5-8.0)
[2025-06-28 15:33] LABS: Appearance Urine Clear; Glucose Urine UA Negative (Negative); PH 6.0 (5.0-9.0); Specific Gravity - Urine 1.025 (1.005-1.025); UMIC TRIGGER UACC YES
== END 2025-06-28 16:44 | disposition home or self-care (01) ==
PROVIDERS: Physician Assistant; Emergency Provider Emergency Medicine Emergency Medical Services; PCP Family Medicine
DX: K59.00 Constipation, unspecified (principal); R10.9 Unspecified abdominal pain
CPT/HCPCS: 36415; 74018; 80048; 80076; 81001; 83735; 85025; 99282; 99283

== ENCOUNTER → 2025-06-28 13:08 | Outpatient (BNV) | payer MEDICAID, SELFPAY | PROVIDERS: PCP Family Medicine; Visit Provider Radiology Diagnostic Radiology | DX: K59.00 Constipation, unspecified (principal) | CPT/HCPCS: 74018 ==

== ENCOUNTER 2025-11-07 12:16 | Outpatient (REF) | payer MEDICAID, SELFPAY ==
--- NOTE | ~2025-11-07 | MM_ITS ---
EXAMINATION: MM SCREENING DIGITAL BREAST TOMOSYNTHESIS, BILATERAL CLINICAL INFORMATION: Screening. Asymptomatic. COMPARISON: Mammography: Comparison is made with available priors TECHNIQUE: Digital breast mammography with tomosynthesis is performed in both the craniocaudal and mediolateral oblique views along with computer-aided detection (CAD). FINDINGS: There are scattered areas of fibroglandular density. There are no significant masses, abnormal calcifications, or other abnormalities. MM/MM tomosynthesis screening BI IMPRESSION: No mammographic evidence of malignancy. ASSESSMENT: BI-RADS Category 1: Negative RECOMMENDATION: Routine annual mammography screening. 1 year F/U This examination should not preclude the clinical evaluation of a suspicious palpable abnormality. This patient's information was entered into a reminder system with a target due date for their next mammogram. Electronically signed by: Jeanne Duque DO 11/09/2025 02:25 PM EVER
--- OUTSIDE RECORDS SUMMARY | 2025-11-07 17:46 | XMS_ITS | Encounter Summary ---
Author Organization [employer] Address [address] [place] [address] Care Team Providers Care Manager Ship Name Role Phone Kym Munoz MD Primary Care Provider [phone]- [phone] Encounter Details Date Type Department Care Team (Late st Contact Info) Description 12/10/2022 Abstract [facility] [address], [place] [phone] Kym Munoz MD [address] [place], [place] [phone] Social History Tobacco Use Types Packs/Day Years [...] MD LAB CYTOLOGY ORDERABLES Fi nal Result [facility] [address] [place] [address] [phone] documented in this encounter Visit Diagnoses Not on filedocumented in this encounter Care Teams Manager Ship Relationship Specialty Start Date End Date Kym Munoz MD [address] [facility] [place] [address] PCP - General Family Medicine 11/24/18 documented as of this encounter
--- OUTSIDE RECORDS SUMMARY | 2025-11-07 17:46 | XMS_ITS | Encounter Summary ---
Author Organization [employer] Address [address] [place] [address] Care Team Providers Care Arc Air Operator Name Role Phone Kym Munoz MD Primary Care Provider +1- [phone] Encounter Details Date Type Department Care Team (Late st Contact Info) Description 09/11/2023 Abstract [facility] [address] [place], [place] [phone] Kym Munoz MD [address] [place], [place] [phone] Social History Tobacco Use Types Packs/Day Years Used Date Smoking Tobacco: Every Day Cigarettes Smokeless Tobacco: Never Depression Answer Date Recorded Patient Health Questionnaire-9 Score 0 01/29/2023 Housing Stability Answer Date Recorded What is your housing situation today? I have [place] 09/11/[address] you li ve. Do you have problems with any of the following? None of the above 09/11/2023 Food Insecurity Answer Date Recorded Within the past 12 months, y ou worried that your food would run out before you got money to buy more: Never True 09/11/2023 Within the past 12 months,th e food you bought just didn't last and you didn't have enough money to get more: Never True Transportation Answer Date Recorded In the past 12 months, has l ack of transportation kept you from medical appts, meetings, work or from getting things needed for daily living? No 09/11/2023 Utilities Answer Date Recorded In the past 12 months, has t he electric, gas, oil or water company threatened to shut off services in your home? No 09/11/2023 Depression Answer Date Recorded Patient Health Questionnaire-2 Score 0 01/29/2023 Comments Unknown Sex and Gender Information Value Date Recorded Sex Assigned at Female 09/23/2022 10:15 AM EDT Legal Sex Female 10:15 AM EDT Gender Identity Female 09/23/2022 10:15 AM EDT Sexual Orientation Choose not to disclose 2021 10:15 AM EDT documented as of this encounter Plan of Treatment Not on file documented as of this encounter Visit Diagnoses Not on filedocumented in this encounter Additional Health Concerns Assessment Noted Time PHQ-9 Depression Total Score: 0 01/30/20 23 10:15 AM EST documented as of this encounter Care Teams Arc Air Operator Relationship Specialty Start Date End Date Kym Munoz MD [address] [place] [address] PCP - General Family Medicine 11/24/18 documented as of this encounter
--- OUTSIDE RECORDS SUMMARY | 2025-11-07 17:46 | XMS_ITS | Encounter Summary ---
Author Organization [employer] Address [address] [place] [address] Care Team Providers Care Experimental Machining Lab Manager Name Role Phone Kym Munoz MD Primary Care Provider +1- [phone] Encounter Details Date Type Department Care Team (Late st Contact Info) Description 12/31/2023 Orders Only [facility] [address] [place], [place] [phone] Kym Munoz MD [address] [place], [place] [phone] Preventative health care Social History Tobacco Use Types Packs/Day Years Used Date Smoking Tobacco: Every Day Cigarettes Smokeless Tobacco: Never Depression Answer Date Recorded Patient Health Questionnaire-9 Score 0 01/29/2023 Housing Stability Answer Date Recorded What is your housing situation today? I have [place] 09/11/[address] you li [...] documented as of this encounter Visit Diagnoses Diagnosis Preventative health care Routine general medical examination at a health care facility documented in this encounter Additional Health Concerns Assessment Noted Time PHQ-9 Depression Total Score: 0 01/30/20 23 10:15 AM EST documented as of this encounter Care Teams [employer] Lab Manager Relationship Specialty Start Date End Date Kym Munoz MD [address] [place] [id number] PCP - General Family Medicine 11/24/18 documented as of this encounter
--- OUTSIDE RECORDS SUMMARY | 2025-11-07 17:46 | XMS_ITS | Clinical Summary ---
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 3 Active QUEtiapine (SEROquel) 100 MG tablet Take 100 mg by mouth at bedtime. 3 Active albuterol 108 (90 Base) MCG/ACT inhalerIndicatio ns:Moderate persistent asthma without complication Inhale 2 puffs every 4 (four) hours. 18 g 3 3 Active sennosides (Senokot) 8.6 MG tabletIndication s:Opioid abuse (HCC) take 2 tablet by oral route every day as needed for constipation as needed 60 tablet 11 5 Active atorvastatin (Lipitor) 40 MG tabletIndication s:Dyslipidemia Take 1 tab po qhs 30 tablet 11 5 Active cholecalciferol (Vitamin D-3) 50 MCG (2000 UT) capsuleIndicatio ns:Vitamin D deficiency Take 1 capsule (50 mcg) by mouth Once per day. 90 capsule 3 5 026 Active polyethylene glycol, PEG, 3350 (MiraLax) 17 GM/SCOOP powderIndication s:Constipation, unspecified constipation type 17 grams in 8-12 oz fluid like water at bedtime prn constipation 527 g 2 10/31/2025 3:33 PM EST Active Omeprazole 20 MG tablet delayed-releaseI ndications:Gastr oesophageal reflux disease, unspecified whether esophagitis present Take 1 tablet (20 mg) by mouth Once per day. 30 tablet 1 5 Active Active Problems Problem Noted Date Diagnosed Date Prediabetes 04/21/2025 Overview (04/21/2025): Lab Results Component Value Date HGBA1C 5.5 04/21/2025 HGBA1C 5.6 07/22/2024 HGBA1C 5.7 (H) 01/29/2023 HGBA1C 5.4 01/15/2022 GLUCOSE 96 04/21/2025 -ordered repeat A1C 04/21/25 Assessment & Plan (04/21/2025 10:28 AM EDT): Lab Results Component Value Date HGBA1C 5.6 07/22/2024 HGBA1C 5.7 (H) 01/29/2023 HGBA1C 5.4 01/15/2022 GLUCOSE 136 (H) 12/06/2023 -ordered repeat A1C 04/21/25 Vitamin D deficiency 04/21/2025 Overview (04/21/2025): Lab Results Component Value Date [id number] 19.6 (L) 04/21/2025 -start cholecalciferol (Vitamin D-3) 50 MCG (2000 UT) 04/21/25 Assessment & Plan (04/21/2025 3:08 PM EDT): Lab Results Component Value Date [id number] 19.6 (L) 04/21/2025 -start cholecalciferol (Vitamin D-3) 50 MCG (2000 UT) 04/21/25 Cardiac risk counseling 10/13/2024 Overview (04/21/2025): Calculated 04/21/25 Intermediate risk The ASCVD Risk score (Ruby DK, et al., 2019) failed to calculate for the following reasons: Unable to determine if patient is Non- Lab Results Component Value Date LDLCHOLCAL 167 (H) 04/21/2025 LDLCHOLCAL TNP 06/12/2023 -Atherosclerotic Cardiovascular Disease (ASCVD) Risk Calculator is intended for a person age 40-79 without ASCVD and with LDL-cholesterol < 190/mg/dl to assesses the chances of developing heart disease over the next 10 years. -Statin therapy: atorvastatin 40mg, not currently taking 04/21/25, ordered repeat FLP and will evaluate restarting 04/21/25 -Importance of moderate physical activity and nutrition interventions discussed. -Labs revealed elevated LDL. Will restart Atorvastatin 40mg 04/21/25 Assessment & Plan (04/21/2025 3:09 PM EDT): Calculated 04/21/25 Intermediate risk The ASCVD Risk score (Ruby HOLT, et al., 2019) failed to calculate for the following reasons: Unable to determine if patient is Non- Lab Results Component Value Date LDLCHOLCAL 167 (H) 04/21/2025 LDLCHOLCAL TNP 06/12/2023 -Atherosclerotic Cardiovascular Disease (ASCVD) Risk Calculator is intended for a person age 40-79 without ASCVD and with LDL-cholesterol < 190/mg/dl to assesses the chances of developing heart disease over the next 10 years. -Statin therapy: atorvastatin 40mg, not currently taking 04/21/25, ordered repeat FLP and will evaluate restarting 04/21/25 -Importance of moderate physical activity and nutrition interventions discussed. -Labs revealed elevated LDL. Will restart Atorvastatin 40mg 04/21/25 Other specified health status 06/09/2023 Overview (04/21/2025): -next comprehensive annual evaluation due after 04/18/25 -referred to [facility] 04/21/25 -dental home is encouraged -belinda care proxy given and filed 04/21/25 Assessment & Plan (04/21/2025 10:05 AM EDT): -next comprehensive annual evaluation due after 04/18/25 -referred to [facility] 04/21/25 -dental home is encouraged -belinda care proxy given and filed 04/21/25 Assessment & Plan (10/22/2023 11:00 AM EST): -next physical exam due after 01/30/2024. -eye care facilitated by -dental home is Assessment & Plan (06/09/2023 10:02 AM EDT): -next physical exam due after 01/30/2024. -eye care facilitated by -dental home is Dyslipidemia 06/09/2023 Overview (04/21/2025): Lab Results Component Value Date CHOL 259 (H) 04/21/2025 CHOL 300 06/12/2023 TRIG 310 (H) 04/21/2025 TRIG 592 06/12/2023 TRIG 338 (H) 01/29/2023 HDL 30 (L) 04/21/2025 HDL 32 06/12/2023 LDLCHOLCAL 167 (H) 04/21/2025 LDLCHOLCAL TNP 06/12/2023 -continue lifestyle modification -atorvastatin 20mg at bedtime started 06/09/2023, will recheck labs -ordered FLP and LFTs 03/11/25 -Labs were elevated. Will restart Atorvastatin 40mg 04/21/25 Assessment & Plan (10/31/2025 12:11 PM EST): Assessment & Plan (04/21/2025 3:07 PM EDT): Lab Results Component Value Date CHOL 259 (H) 04/21/2025 CHOL 300 06/12/2023 TRIG 310 (H) 04/21/2025 TRIG 592 06/12/2023 TRIG 338 (H) 01/29/2023 HDL 30 (L) 04/21/2025 HDL 32 06/12/2023 LDLCHOLCAL 167 (H) 04/21/2025 LDLCHOLCAL TNP 06/12/2023 -continue lifestyle modification -atorvastatin 20mg at bedtime started 06/09/2023, will recheck labs -ordered FLP and LFTs 03/11/25 -Labs were elevated. Will restart Atorvastatin 40mg 04/21/25 Assessment & Plan (03/09/2025 1:21 PM EDT): Lab Results Component Value Date CHOLESTEROL 295 (H) 01/29/2023 LDLCHOL 204 (H) 01/29/2023 LDLCHOL 186 (H) 01/15/2022 TRIG 592 06/12/2023 TRIG 338 (H) 01/29/2023 HDLCHOL 34 (L) 01/29/2023 CHOLHDLRAT 8.7 (H) 01/29/2023 -continue lifestyle modifications -atorvastatin 20mg at bedtime started 06/09/2023, will recheck labs -check FLP and LFTs in 6 weeks Assessment & Plan (10/22/2023 12:12 PM EST): Lab Results Component Value Date TRIG 592 06/12/2023 TRIG 338 (H) 01/29/2023 CHOL 300 06/12/2023 LDLCHOLCAL TNP 06/12/2023 HDL 32 06/12/2023 -continue lifestyle modifications -atorvastatin 20mg at bedtime started 06/09/2023, will recheck labs -check FLP and LFTs in 6 weeks Assessment & Plan (06/09/2023 1:58 PM EDT): Lab Results Component Value Date CHOLESTEROL 295 (H) 01/29/2023 LDLCHOL 204 (H) 01/29/2023 LDLCHOL 186 (H) 01/15/2022 TRIG 338 (H) 01/29/2023 HDLCHOL 34 (L) 01/29/2023 CHOLHDLRAT 8.7 (H) 01/29/2023 -continue lifestyle modifications -atorvastatin 20mg at bedtime started 06/09/2023 -check FLP and LFTs in 6 weeks Chronic kidney disease, stage 1 06/09/2023 Overview (06/09/2023): EGFR is 55 01/2023 -avoid nephrotoxic agents Assessment & Plan (04/21/2025 10:15 AM EDT): EGFR is 55 01/2023 -avoid nephrotoxic agents Assessment & Plan (10/22/2023 11:01 AM EST): EGFR is 55 01/2023 -avoid nephrotoxic agents Assessment & Plan (06/09/2023 2:00 PM EDT): EGFR is 55 01/2023 -avoid nephrotoxic agents Chronic midline posterior neck pain 06/09/2023 Overview (06/09/2023): -chronic, no improvment with PT -x rays ordered -referral to ortho 06/09/2023 Assessment & Plan (10/22/2023 11:01 AM EST): -chronic, no improvment with PT -x rays ordered -referral to ortho 06/09/2023 Assessment & Plan (06/09/2023 1:59 PM EDT): -chronic, no improvment with PT -x rays ordered -referral to ortho 06/09/2023 Acid reflux 01/29/2023 Assessment & Plan (10/31/2025 12:11 PM EST): Orders: Omeprazole 20 MG tablet delayed-release; Take 1 tablet (20 mg) by mouth Once per day. Screening for colon cancer 01/29/2023 Overview (04/21/2025 10:16 AM EDT): -Referred to GI 01/03/22 but she was scared to take the prep. -Referred again 01/29/2023 advise discuss prep concerns with provider. She agrees. -Pt agreed to call for appointment 06/09/2023 but did not follow up -Cologuard ordered 07/08/2024 she repots she did not get it, Resent 10/13/24 and 03/09/25 and 04/21/25 Assessment & Plan (04/21/2025 10:16 AM EDT): >>ASSESSMENT AND PLAN FOR COLON CANCER SCREENING WRITTEN ON 01/29/2023 12:08 PM BY KMY CERVANTES MD -Referred to GI 01/03/22 but she was scared to take the prep. Referred again 01/29/2023 advise discuss prep concerns with provider. She agrees Assessment & Plan (04/21/2025 10:16 AM EDT): >>ASSESSMENT AND PLAN FOR COLON CANCER SCREENING WRITTEN ON 06/09/2023 11:02 AM BY WHIT CALI -Referred to GI 01/03/22 but she was scared to take the prep. -Referred again 01/29/2023 advise discuss prep concerns with provider. She agrees. -Pt agrees to call for appointment 06/09/2023. Assessment & Plan (04/21/2025 10:16 AM EDT): >>ASSESSMENT AND PLAN FOR COLON CANCER SCREENING WRITTEN ON 10/22/2023 11:00 AM BY CHANTE ACOSTA -Referred to GI 01/03/22 but she was scared to take the prep. -Referred again 01/29/2023 advise discuss prep concerns with provider. She agrees. -Pt agrees to call for appointment 06/09/2023 Assessment & Plan (04/21/2025 10:16 AM EDT): -Referred to GI 01/03/22 but she was scared to take the prep. -Referred again 01/29/2023 advise discuss prep concerns with provider. She agrees. -Pt agreed to call for appointment 06/09/2023 but did not follow up -Cologuard ordered 07/08/2024 she repots she did not get it, Resent 10/13/24 and 03/09/25 and 04/21/25 Hypertensive disorder 12/10/2022 Overview (04/21/2025): -Diagnosed 10/2021 -Blood pressure is at goal -Continue lifestyle modifications -Continue current medications -Has home BP Assessment & Plan (10/31/2025 12:11 PM EST): Assessment & Plan (04/21/2025 10:03 AM EDT): -Diagnosed 10/2021 -Blood pressure is at goal -Continue lifestyle modifications -Continue current medications -Has home BP Assessment & Plan (03/09/2025 1:24 PM EDT): -Diagnosed 10/2021 -home BP monitor written Assessment & Plan (10/22/2023 10:59 AM EST): -Diagnosed 10/2021. Assessment & Plan (01/29/2023 12:07 PM EST): -Diagnosed 10/2021. -Well controlled off medication -Will give home BP monitor and CDTM to monitor. Opioid abuse 12/10/2022 Overview (04/21/2025): She has been on Methadone 65mg in program. -reports findings of alcohol in her urine at [facility] testing. Med reconciliation with no evidence that would cause this. Ordered repeat A1C and will evaluate for possible underlying diabetes. Recommended pt ask for a blood alcohol test 04/21/25 Assessment & Plan (04/21/2025 10:29 AM EDT): She has been on Methadone 65mg in program. -reports findings of alcohol in her urine at [facility] testing. Med reconciliation with no evidence that would cause this. Ordered repeat A1C and will evaluate for possible underlying diabetes. Recommended pt ask for a blood alcohol test 04/21/25 Assessment & Plan (10/22/2023 10:59 AM EST): She has been on Methadone 65mg in program. Assessment & Plan (01/29/2023 9:00 AM EST): She has been on Methadone 65mg in program. Weight loss 12/05/2022 Overview (01/29/2023): Assessment & Plan (01/29/2023 10:44 AM EST): Highest weight 160 in 09/2018. Baseline is about 140lbs and is 131.2 lbs today. She is due for colon cancer screening and labs. Will check labs and referr to GI. Follow up 3 months, may request chest X-rays depending on visit. Mild intermittent asthma 01/03/2022 Overview (10/31/2025): Well controlled. PFTs ordered 10/31/25 -Continue Albertol as needed Assessment & Plan (10/31/2025 12:11 PM EST): Well controlled. PFTs ordered 10/31/25 -Continue Albertol as needed Orders: Pulmonary Function Test; Future Assessment & Plan (04/21/2025 10:08 AM EDT): Well controlled. -Continue Albertol as needed Assessment & Plan (03/09/2025 1:24 PM EDT): -Continue Albertol as needed -PFTs ordered but not done Assessment & Plan (10/22/2023 10:59 AM EST): -Restart Flovent 2 puffs BID on 11/27/2021 -Continue Albertol as needed -PFTs ordered Assessment & Plan (01/29/2023 12:06 PM EST): -Restart Flovent 2 puffs BID on 11/27/2021 -Continue Albertol as needed Recurrent major depressive disorder, in partial remission 05/02/2014 Overview (10/31/2025): Has therapist and psychiatrist Assessment & Plan (10/31/2025 12:11 PM EST): Continue with therapist and psychiatrist. She requests letter to keep 2 bedroom apt due to PTSD and needing someone overnight. I let her know we can write this but can not enforce it. Nicotine dependence, cigarettes, uncomplicated 0 12/02/2012 Overview (08/01/2025): -cessation encouraged -cut down from 40 to 20 to 10 cig to 6 cig day -Cigg/day: 6 -Age started: 13 -Total years smokin -Pack year history: 40 Encouraged smoking cessation resources such as pharmacomtherapy, [facility] smoking cessation group, and [facility] pharmacy smoking cessation clinic Discussed USPSTF recommends annual lung cancer screening with low dose CT in people who meet the following criteria: -ages 50 to 80 years. -have a 20 pack-year smoking history. -currently smoke cigarettes or quit within the past 15 years. -LDCT: 06/24/25 Lung-RADS Category 1: Negative. (onset 15yo, 1-1ppd x 40yrs, 30pyh) Assessment & Plan (10/31/2025 12:11 PM EST): -cessation encouraged -cut down from 40 to 20 to 10 cig to 6 cig day -Cigg/day: 6 -Age started: 13 -Total years smokin -Pack year history: 40 Encouraged smoking cessation resources such as pharmacomtherapy, [facility] smoking cessation group, and [facility] pharmacy smoking cessation clinic Discussed USPSTF recommends annual lung cancer screening with low dose CT in people who meet the following criteria: -ages 50 to 80 years. -have a 20 pack-year smoking history. -currently smoke cigarettes or quit within the past 15 years. -LDCT: 06/24/25 Lung-RADS Category 1: Negative. (onset 15yo, 11/25-1ppd x 40yrs, 30pyh) Orders: Pulmonary Function Test; Future Assessment & Plan (04/21/2025 10:06 AM EDT): -cessation encouraged -cut down from 40 to 20 to 10 cig to 6 cig day -Cigg/day: 6 -Age started: 13 -Total years smokin -Pack year history: 40 Encouraged smoking cessation resources such as pharmacomtherapy, [facility] smoking cessation group, and [facility] pharmacy smoking cessation clinic Discussed USPSTF recommends annual lung cancer screening with low dose CT in people who meet the following criteria: -ages 50 to 80 years. -have a 20 pack-year smoking history. -currently smoke cigarettes or quit within the past 15 years. -LDCT: ordered 03/09/25, still awaiting call 04/21/25 Assessment & Plan (03/09/2025 2:03 PM EDT): -cessation encouraged -cut down from 40 to 20 to 10 cig to 6 cig day -Cigg/day: 6 -Age started: 13 -Total years smokin -Pack year history: 40 Encouraged smoking cessation resources such as pharmacomtherapy, [facility] smoking cessation group, and [facility] pharmacy smoking cessation clinic Discussed USPSTF recommends annual lung cancer screening with low dose CT in people who meet the following criteria: -ages 50 to 80 years. -have a 20 pack-year smoking history. -currently smoke cigarettes or quit within the past 15 years. -LDCT: ordered 03/09/25 Assessment & Plan (10/22/2023 10:59 AM EST): -cessation encouraged -cut down from 20 to 10 cig Assessment & Plan (06/09/2023 1:58 PM EDT): -cessation encouraged -cut down from 20 to 10 cig per day Assessment & Plan (01/29/2023 10:45 AM EST): Not interested in quitting at this time. Urinary, incontinence, stress female 12/02/2012 Resolved Problems Problem Noted Date Diagnosed Date Resolved Date Neck pain 06/09/2023 06/09/2023 Moderate persistent asthma w ithout complication 12/10/2022 01/25/2025 Assessment & Plan (01/29/2023 12:06 PM EST): -Well controlled Jeremiah hematuria 12/05/2022 01/29/2023 Overview (01/29/2023): Assessment & Plan (01/29/2023 10:42 AM EST): Hxs of kidney stones. Followed by urology. Encounters Date Type Department Care Team Description 10/31/2025 11:30 AM EST Office Visit [facility] MEDICINE [address] [place] [phone] Kym Cervantes MD Dyslipidemia (Primary Dx); Primary hypertension; Mild intermittent asthma, unspecified whether complicated; Nicotine dependence, cigarettes, uncomplicated; Recurrent major depressive disorder, in partial remission (CMS/HCC); Constipation, unspecified constipation type; Neck pain; Gastroesophageal reflux disease, unspecified whether esophagitis present; Encounter for immunization 10/31/2025 Travel 10/28/2025 Telephone [facility] [address] [place] [phone] Kym Cervantes MD chart prep 10/24/2025 Travel 09/23/2025 9:15 AM EDT Office Visit [facility] OPTOMETRY [address] [place] [address] Arlen Moreno OD Presbyopia (Primary Dx) 08/29/2025 Telephone [facility] MEDICINE [address] [place] [address] Kym Cervantes MD October Recalls 08/29/2025 Travel from Last 3 Months Immunizations Immunization Administration Dates Next Due Hep B, adult 04/21/2025,06/09/2023 Influenza injectable quadriv alent IIV4 with preservative 10/01/2018 Influenza injectable quadrivalent preservative f ree 09/03/2019 Pneumococcal Conjugate PCV 20 06/09/2023 Pneumococcal Polysaccharide PPSV23 05/02/2014 Tdap 04/21/2025,05/02/2014 Social History Tobacco Use Types Packs/Day Years Used Date Smoking Tobacco: Every Day Cigarettes Smokeless Tobacco: Never Tobacco Cessation:Ready to Q uit: Not Asked; Counseling Given: Not Answered Depression Answer Date Recorded Patient Health Questionnaire-9 Score 5 04/21/2025 Patient Health Questionnaire-9 Score 5 04/21/2025 Last PHQ-9: Questionnaire Data Not on file 0 04/21/2025 Housing Stability Answer Date Recorded What is your housing situation today? I have [facility] 04/21/[address] you li ve. Do you have problems with any of the following? None of the above 04/21/2025 Food Insecurity Answer Date Recorded Within the past 12 months, y ou worried that your food would run out before you got money to buy more: Never True 04/21/2025 Within the past 12 months,th e food you bought just didn't last and you didn't have enough money to get more: Never True Transportation Answer Date Recorded In the past 12 months, has l ack of transportation kept you from medical appts, meetings, work or from getting things needed for daily living? No 04/21/2025 Utilities Answer Date Recorded In the past 12 months, has t he electric, gas, oil or water company threatened to shut off services in your home? No 04/21/2025 Depression Answer Date Recorded Patient Health Questionnaire-2 Score 2 04/21/2025 Internet Access Answer Date Recorded Internet Access Q1 No 04/21/2025 Internet Access Q2 I do not want or need it 03/25 Comments Unknown Sex and Gender Information Value Date Recorded Sex Assigned at Female 09/23/2022 10:15 AM EDT Legal Sex Female 10:15 AM EDT Gender Identity Female 09/23/2022 10:15 AM EDT Sexual Orientation Choose not to disclose 2021 10:15 AM EDT Last Filed Vital Signs Vital Sign Reading Time Taken Comments Blood Pressure 120/74 10/31/2025 11:39 AM EST Pulse 94 10/31/2025 11:39 AM EST Temperature 37.2 C (98.9 F) 10/31/2025 11:39 AM EST Respiratory Rate 20 10/31/2025 11:3 9 AM EST Oxygen Saturation 98% 10/31/2025 11: 39 AM EST Inhaled Oxygen Concentration - - Weight 64.8 kg (142 lb 12.8 oz) 025 11:39 AM EST Height 162.6 cm (5' 4 ) 04/21/2025 9:33 AM EDT Body Mass Index 24.51 04/21/2025 9:33 AM EDT Plan of Treatment Health Maintenance Due Date Last Done Comments CT Colonography 1969 Colonoscopy 1969 Colorectal Cancer Screening 1969 FIT DNA/Cologuard 1969 11/02/2025 FIT 1969 FOBT 1969 11/02/2025 Sigmoidoscopy 1969 HPV/Cotest 1999 Pap Smear 01/01/2016 01/01/2013 Dental Prophylaxis 01/11/2019 07/10/2018 Dental X-Ray: Full Mouth 02/07/2019 02/07/2016 RSV Patients and Patients Aged 60 years or older (1 - Risk 50-74 years 1-dose series) 2019 Zoster Vaccines (1 of 2) 2019 Dental Oral Exam 06/10/2020 12/10/2019, , 02/07/2016, Additional history exists Dental X-Ray: Bitewings 06/04/2025 06/03/20 24, 12/10/2019, 07/10/2018, Additional history exists Hepatitis B Vaccines (3 of 3 - 19+ 3-dose series) 06/16/2025 04/21/2025, 06/09/2023 Alcohol/Substance Use Screening 04/21/2026 04/21/2025 Depression Screening 04/21/2026 04/21/2025, 04/21/20 Diabetes: Hemoglobin A1C 04/21/2026 025, 07/22/2024, 01/29/2023, Additional history exists SDOH Screening 04/21/2026 04/21/2025 Influenza Vaccine (#1) 2026 09/03/2019, 2017 Postponed from 07/25/2025 (Patient Refused) Disability Screening 10/24/2026 10/24/2025 COVID-19 Vaccine ( season) 2026 Postponed from 07/25/2025 (Patient Refused) Tobacco Screening 10/31/2026 10/31/2025 Mammogram 11/01/2026 11/01/2024, 05/0 01/2022, 03/26/2022 Lipid Panel 04/21/2030 04/21/2025, 07/, 01/29/2023, Additional history exists DTaP/Tdap/Td Vaccines (3 - Td or Tdap) 04/21/2035 04/21/2025, 05/02/2014 HIV Screening Completed 01/29/2023, 01/15/2022 Hepatitis C Screening Completed 01/29/2023 Pneumococcal Vaccine: 50+ Years Completed 06/09/2023, 05/02/2014 Cervical Cancer Screening Discontinued HIB Vaccines Aged Out No longer eligi ble based on patient's age to complete this topic HPV Vaccines Aged Out No longer eligi ble based on patient's age to complete this topic Hepatitis A Vaccines Aged Out No long er eligible based on patient's age to complete this topic IPV Vaccines Aged Out No longer eligi ble based on patient's age to complete this topic Meningococcal B Vaccine Aged Out No l onger eligible based on patient's age to complete this topic Meningococcal Vaccine Aged Out No olga jayshree eligible based on patient's age to complete this topic RSV under 20 months Aged Out No longe r eligible based on patient's age to complete this topic Rotavirus Vaccines Aged Out No longer eligible based on patient's age to complete this topic Procedures Procedure Name Priority Date/Time Associated Diagnosis Comments LAB COLOGUARD COLON CANCER SCREEN Routine 11/02/2025 10:00 AM EST Screening for colon cancer HEMOGLOBIN A1C Routine 04/21/2025 10:42 AM EDT Prediabetes LIPID PANEL, STANDARD Routine 04/21/2025 10:42 AM EDT Dyslipidemia BI MAMMOGRAM SCREENING TOMOSYNTHESIS BILATERAL Routine 11/01/2024 1:30 PM EST Screening mammogram for breast cancer BITEWING - SINGLE RADIOGRAPHIC IMAGE Routine 06/03/2024 2:00 PM EDT Dental caries Dental abscess HEPATITIS C AB W/REFL TO HCV RNA, QN, PCR Routine 01/29/2023 10:51 AM EST Weight loss Routine screening for STI (sexually transmitted infection) HIV 1/2 ANTIGEN/ANTIBODY, FOURTH GENERATION W/RFL Routine 01/29/2023 10:51 AM EST Weight loss Routine screening for STI (sexually transmitted infection) PERIODIC ORAL EVALUATION - ESTABLISHED PATIENT Routine 12/10/2019 12:00 AM EST PROPHYLAXIS - ADULT Routine 07/10/2018 1 2:00 AM EDT INTRAORAL - COMPLETE SERIES OF RADIOGRAPHIC IMAGES Routine 02/07/2016 12:00 AM EDT PAP SMEAR Routine 01/01/2013 12:00 AM EST from Last 3 Months or Most Recently Relevant to Health Maintenance Results * Cologuard?? colon cancer screening (11/02/2025 10:00 AM EST) Cologuard Result Negative Negative 11/07/20 11:33 AM EST [facility] (CLIA #:[id number]) Comment: The Cologuard (TM) test was performed on this specimen. NEGATIVE TEST RESULT. A negative Cologuard result indicates a low likelihood that a colorectal cancer (CRC) or advanced adenoma (adenomatous polyps with more advanced pre-malignant features) is present. The chance that a person with a negative Cologuard test has a colorectal cancer is less than 1 in 1500 (negative predictive value >99.9%) or has an advanced adenoma is less than 5.3% (negative predictive value 94.7%). These data are based on a prospective cross-sectional study of 10,000 individuals at average risk for colorectal cancer who were screened with both Cologuard and colonoscopy. (Bassem Mckeon et al, N Engl J Med 2014;370(14):1286- 1297) The normal value (reference range) for this assay is negative. COLOGUARD RE-SCREENING RECOMMENDATION: Periodic colorectal cancer screening is an important part of preventive healthcare for asymptomatic individuals at average risk for colorectal cancer. Following a negative Cologuard result, the [place] [employer] and U.S. Multi-Society Task Force screening guidelines recommend a Cologuard re-screening interval of 3 years. References: [place] [employer] Guideline for Colorectal Cancer Screening: https://www.cancer.org/cancer/gqfmr-gzwtla-abifrj/oefsiyyfu-wqfwqznok-vjurphr/ac s-rec ommendations.html.; Rizwan DK, Pao WHITEHEAD, Marlen BabcockK, Colorectal Cancer Screening: Recommendations for Physicians and Patients from the U.S. Multi-Society Task Force on Colorectal Cancer Screening , Am J Gastroenterology 2017; 112:0479-5463. TEST DESCRIPTION: Composite algorithmic analysis of stool DNA-biomarkers with hemoglobin immunoassay. Quantitative values of individual biomarkers are not reportable and are not associated with individual biomarker result reference ranges. Cologuard is intended for colorectal cancer screening of adults of either sex, 45 years or older, who are at average-risk for colorectal cancer (CRC). Cologuard has been approved for use by the U.S. FDA. The performance of Cologuard was established in a cross sectional study of average-risk adults aged 50-84. Cologuard performance in patients ages 45 to 49 years was estimated by sub-group analysis of near-age groups. Colonoscopies performed for a positive result may find as the most clinically significant lesion: colorectal cancer [4.0%], advanced adenoma (including sessile serrated polyps greater than or equal to 1cm diameter) [20%] or non- advanced adenoma [31%]; or no colorectal neoplasia [45%]. These estimates are derived from a prospective cross-sectional screening study of 10,000 individuals at average risk for colorectal cancer who were screened with both Cologuard and colonoscopy. (Bassem Britt al, N Engl J Med 2014;370(14):2317-6913.) Cologuard may produce a false negative or false positive result (no colorectal cancer or precancerous polyp present at colonoscopy follow up). A negative Cologuard test result does not guarantee the absence of CRC or advanced adenoma (pre-cancer). The current Cologuard screening interval is every 3 years. ([place] [employer] and U.S. Multi-Society Task Force). Cologuard performance data in a 10,000 patient pivotal study using colonoscopy as the reference method can be accessed at the following location: www.[employer]/results. Additional description of the Cologuard test process, warnings and precautions can be found at www.[employer].Zuse. Stool specimen (specimen) Rectal contents / Unknown 11/02/2025 10:00 AM EST 11/03/2025 10:16 AM EST Kym Cervantes MD LAB MOLECULAR DIAGNOSTICS ORDERABLES Final Result [facility] (CLIA #:[id number]) [address] [place] [address], * Hemoglobin A1c (04/21/2025 10:42 AM EDT) Hemoglobin A1c 5.5 <6.0 % [facility] Comment:Hemoglobin A1C Refer ence Range Adults: 4.8 - 6.0 % Non diabetic: < 6.0 % Goal: < 7.0 %Additional Action Suggested: > 8.0 %Note: Hemoglobin A1c results are invalid for patients with abnormal amounts of HbF. Blood transfusions may impact the HbA1c concentration in the patient sample. Estimated Average Glucose 111 mg/dL [facility] Comment:eAG = Estimated ave rage glucose which is %A1C expressed asaverage glucose, using the formula of the F9M-IuwnwubFmstnxn Glucose study (ADAG), Diabetes Care, Vol.31,#8,Jun. 2007 Blood Venous blood specimen / Unknown 04/21/2025 10:42 AM EDT 04/21/2025 11:44 AM EDT Kym Cervantes MD LAB BLOOD ORDERABLES Final Result Performing Organization Address City/[facility]/ZIP Co de Phone Number [facility] [address] [place] [address] [phone] * (ABNORMAL) Lipid Panel, Standard (04/21/2025 10:42 AM EDT) Triglycerides 310(H) <150 mg/dL [facility] Comment:Desirable Triglyceri de: less than 150 mg/dLBorderline High Triglyceride 150-199 mg/dLHigh Triglyceride: 200-499 mg/dLVery High Triglyceride: greater than or equal to 5OO mg/dL Cholesterol 259(H) <200 mg/dL [facility] Comment:Desirable Cholestero l: less than 200 mg/dLBorderline High Cholesterol: 200-239 mg/dLHigh Cholesterol: greater than 239 mg/dL LDL Cholesterol Calculated 167(H) <100 mg/dL [facility] Comment:Desirable LDL: less than 100 mg/dLNear Optimal/Above Optimal LDL: 110- 129 mg/dLBorderline High LDL: 130-159 mg/dLHigh LDL: 160-189 mg/dLVery High LDL: greater than or equal to 190 mg/dL HDL Cholesterol 30(L) >40 mg/dL [facility] Comment:Desirable HDL: great er than 40 mg/dL Note: This HDL assay may give artificially low results in patients with liver disease. Blood Venous blood specimen / Unknown 04/21/2025 10:42 AM EDT 04/21/2025 11:37 AM EDT Kym Cervantes MD LAB BLOOD ORDERABLES Final Result [facility] [address] [place] [address] [phone] * BI Mammogram Screening Tomosynthesis Bilateral (11/01/2024 1:30 PM EST) Anatomical Region Laterality Modality Breast Bilateral Mammography 11/01/2024 1:30 PM EST Narrative 11/05/2024 5:27 PM EST [facility] [address] [place] [address] Mammography Report Signed Patient: Toshia Liu MR#: [id number] 5 : 1970 Acct:[id number] Age/Sex: 54 / F ADM Date: 11/01/24 Loc: HO.MAMMO Attending Dr: Kym Cervantes MD Ordering Physician: Kym Cervantes MD Results: 1N egative Date of Service: 11/01/24 Follow Up: 1 Year From Orig inal Mammogram Procedure(s): MM tomosynthesis screening BI Accession Number(s): [id number] cc: Kym Cervantes MD EXAMINATION: MM SCREENING DIGITAL BREAST TOMOSYNTHESIS, BILATERAL CLINICAL INFORMATION: Screening. Asymptomatic. COMPARISON: Mammography: Comparison is made with available priors TECHNIQUE: Digital breast mammography with tomosynthesis is performed in both the craniocaudal and mediolateral oblique views along with computer-aided detection (CAD). FINDINGS: There are scattered areas of fibroglandular density (ACR BI-RADS breast composition Category b). There are no significant masses, abnormal calcifications, or other abnormalities. MM/MM tomosynthesis screening BI IMPRESSION: No mammographic evidence of malignancy. ASSESSMENT: BI-RADS BI-RADS 1 - Negative RECOMMENDATION: Routine annual mammography screening. 1 year F/U This examination should not preclude the clinical evaluation of a suspicious palpable abnormality. This patient's information was entered into a reminder system with a target due date for their next mammogram. Electronically signed by: Jeanne Duque DO 11/05/2024 05:24 PM EST Dictated By: Jeanne Duque DO Signed By: <Electronically signed by Jeanne Duque DO in OV> 11/05/24 1724 DD/ 1330 TD/TT: 11/01/24 1344 Panman: Procedure Note Donotuseinterpreter, Image - 11/05/2024 [facility] [address] [place] [address] [place] [address] Mammography Report Signed Patient: Elvi Liu#: [id number] 5 : 1970Acct:[id number] Age/Sex: 54 / FADM Date: 11/01/24 Loc: HO.MAMMO Attending Dr: Kym Cervantes MD Ordering Physician: Kym Cervantes MDResults: 1N egative Date of Service: 11/01/24Follow Up: 1 Year From Orig inal Mammogram Procedure(s): MM tomosynthesis screening BI Accession Number(s): [id number] cc: Kym Cervantes MD EXAMINATION: MM SCREENING DIGITAL BREAST TOMOSYNTHESIS, BILATERAL CLINICAL INFORMATION: Screening. Asymptomatic. COMPARISON: Mammography: Comparison is made with available priors TECHNIQUE: Digital breast mammography with tomosynthesis is performed in both the craniocaudal and mediolateral oblique views along with computer-aided detection (CAD). FINDINGS: There are scattered areas of fibroglandular density (ACR BI-RADS breast composition Category b). There are no significant masses, abnormal calcifications, or other abnormalities. MM/MM tomosynthesis screening BI IMPRESSION: No mammographic evidence of malignancy. ASSESSMENT: BI-RADS BI-RADS 1 - Negative RECOMMENDATION: Routine annual mammography screening. 1 year F/U This examination should not preclude the clinical evaluation of a suspicious palpable abnormality. This patient's information was entered into a reminder system with a target due date for their next mammogram. Electronically signed by: Jeanne Duque DO 11/05/2024 05:24 PM EST Dictated By: Jeanne Duque DO Signed By: <Electronically signed by Jeanne Duque DO in OV> 11/05/24 1724 DD/ 1330 TD/TT: 11/01/24 1344 Panman: Kym Cervantes MD IMG BI PROCEDURES Final Re sult * Hepatitis C Antibody with Reflex to HCV, RNA, Quantitative, Real-Time PCR (01/29/2023 10:51 AM EST) Hepatitis C Antibody NON-REACT BELEN NON-REACT BELEN [facility] Index 0.06 <1.00 [employer] [facility] Comment: HCV antibody was non-reactive. There is no laboratory evidence of HCV infection. In most cases, no further action is required. However, if recent HCV exposure is suspected, a test for HCV RNA (test code 89927) is suggested. For additional information please refer to http://[employer].CTQuan/faq/NXJ91h1 (This link is being provided for informational/ educational purposes only.) Blood Venous blood specimen / Unknown 01/29/2023 10:51 AM EST 01/29/2023 10:51 AM EST Narrative [facility] - 02/01/2023 7:49 PM EST FASTING:UNKNOWN FASTING: UNKNOWN us Kym Cervantes MD LAB BLOOD ORDERABLES Final Result [facility] [address] [facility], [place] [address] [employer] [place] [facility] [address] [facility], ([address]) [place] [address] * HIV-1/2 Antigen and Antibodies, Fourth Generation, with Reflexes (01/29/2023 10:51 AM EST) HIV Antigen/Antibody, 4th Generation NON-REAC TIVE NON-REAC TIVE [facility] [place] [facility] Comment: HIV-1 antigen and HIV-1/HIV-2 antibodies were not detected. There is no laboratory evidence of HIV infection. PLEASE NOTE: This information has been disclosed to you from records whose confidentiality may be protected by state law. If your state requires such protection, then the state law prohibits you from making any further disclosure of the information without the specific written consent of the person to whom it pertains, or as otherwise permitted by law. A general authorization for the release of medical or other information is NOT sufficient for this purpose. For additional information please refer to http://NsGene.CTQuan/faq/OYX088 (This link is being provided for informational/ educational purposes only.) The performance of this assay has not been clinically validated in patients less than 2 years old. Blood Venous blood specimen / Unknown 01/29/2023 10:51 AM EST 01/29/2023 10:51 AM EST Narrative [facility] - 02/01/2023 7:49 PM EST FASTING:UNKNOWN FASTING: UNKNOWN Kym Cervantes MD LAB BLOOD ORDERABLES Final Result [facility] [address] [place] [address], [facility], [place] [address] [facility] [address] [facility], [address] [place] [address] * Pap Smear (01/01/2013 12:00 AM EST) Swab Kym Cervantes MD LAB CYTOLOGY ORDERABLES Fi nal Result [facility] [address] [place], [place] [phone] from Last 3 Months or Most Recently Relevant to Health Maintenance Insurance [address] [place] [phone] [facility] [address], [place] [address] [facility] ST[facility] ADULT [address] [place] [id number] [address], [place] [address] [place] [phone] Advance Directives Documents on File Type Date Recorded 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
== END 2025-11-07 12:17 | disposition home or self-care (01) ==
LOC: HO.MAMMO 12:16
PROVIDERS: PCP Family Medicine; Visit Provider Family Medicine
DX: Z12.31 Encounter for screening mammogram for malignant neoplasm of breast (principal)
CPT/HCPCS: 77063; 77067

== ENCOUNTER → 2025-11-07 12:30 | Outpatient (BNV) | payer MEDICAID, SELFPAY | PROVIDERS: PCP Family Medicine; Visit Provider Internal Medicine | DX: Z12.31 Encounter for screening mammogram for malignant neoplasm of breast (principal) | CPT/HCPCS: 77063; 77067 ==